=== PATIENT | female | born 1945 | race Caucasian/White ===

== ENCOUNTER 2017-04-15 12:12 | Inpatient (IN) ==
[2017-04-15] MEDS: 0.9 % SODIUM CHLORIDE 250 ML IV SCH ×2 (13:11→15:29)
[2017-04-15 13:21] LABS: Mean Cell Volume 106.1 fL (80.0-100.0); Mean Corpuscular HGB Conc 32.1 g/dL (31.0-36.0); Mean Corpuscular Hemoglobin 34.1 pg (26.0-34.0); Platelet Count 283 K/mcL (140-440); RBC 1.33 M/mcL (4.00-5.20); Red Cell Distribution Width 22.1 % (11.5-14.5)
[2017-04-15 13:34] LABS: ALT/SGPT 10 U/l (0-40); Albumin 3.2 gm/dL (3.2-5.2); Albumin/Globulin Ratio 1.3 (1.0-2.3); Alkaline Phosphatase 72 U/L (39-117); Blood Urea Nitrogen 27 mg/dl (8-23)
[2017-04-15 13:54] LABS: Anisocytosis 2+ (NONE SEEN); Eosinophils % (Manual) 3 % (0-7); Lymphocytes % 17 % (15-49); Macrocytosis 2+ (NONE SEEN); Monocytes % (Manual) 6 % (1-12); Platelet Estimate NORMAL (NORMAL); RBC Morphology ABNORM (NORMAL); Segmented Neutrophils % 74 % (38-78)
[2017-04-15] MEDS ORDERED: HYDROcodone/APAP 5/325MG TABLET PO ONE (14:03)
--- NOTE | 2017-04-15 14:05 | Emergency Department Note ---
Recheck HPI - General Chief Complaint: Recheck/Abnormal Lab/Rx Stated Complaint: low H&H Time Seen by Provider: 04/15/17 12:25 Source: patient, family Mode of arrival: ambulatory Limitations: altered mental status - History of Present Illness HPI Narrative: This chronically ill and complicated patient arrives from the residential following a panic low H&H. She is a poor historian and does not endorse any particular complaints on admit to the unit. After a period of time she began to complain of abdominal pain. Her states that this is chronic with her and she is chronically constipated as well. She does not know if she has had bloody or loose stools lately. She has chronic knee disease chronic dementia chronic heart disease as well as behavioral disturbance. Please see past medical history for entire list MD complaint: abnormal lab Onset/Timin Initial Visit (ago): day(s) Symptoms Since Prior Visit: worsening pain Context: other (Abnormal lab noted at the residential where she resides.) Associated symptoms: malaise - Related Data Home Medications Medication Instructions Recorded Confirmed Multivitamin [One Daily Essential] 1 tab PO DAILY 11/08/16 04/15/17 acetaminophen 325 mg capsule 650 mg PO Q6HP PRN cap 01/27/17 04/15/17 bisacodyl 10 mg rectal suppository 10 mg [place] DAILYP PRN 01/27/17 04/15/17 citalopram 40 mg tablet 20 mg PO HS tab 01/27/17 04/15/17 cyanocobalamin (vit B-12) 2,500 2,500 mcg SUBLINGUAL QDAY 01/27/17 04/15/17 mcg sublingual tablet lorazepam 0.5 mg tablet 0.5 mg PO DAILYP PRN tab 01/27/17 04/15/17 lorazepam 0.5 mg tablet 0.5 mg PO TID tab 01/27/17 04/15/17 magnesium citrate oral solution 15 ml PO BID PRN ml 01/27/17 04/15/17 magnesium hydroxide 400 mg/5 mL 30 ml PO HSP PRN ml 01/27/17 04/15/17 oral suspension sodium phosphates 19 gram-7 118 ml [place] DAILYP PRN 01/27/17 04/15/17 gram/118 mL enema Calcium Carbonate [Tums] 500 - 1,000 mg CHEWED DAILYP PRN 04/15/17 04/15/17 Ferrous Sulfate 325 mg PO BIDCC 04/15/17 04/15/17 Hydrocodone/APAP 7.5/325Mg [[place] 1 tab PO Q6HP PRN 04/15/17 04/15/17 7.5/325Mg] Naproxen Sodium 550 mg PO DAILYP PRN 04/15/17 04/15/17 OLANZapine [Zyprexa] 10 mg PO HS 04/15/17 04/15/17 Ondansetron [Zofran Odt] 4 mg PO Q6HP PRN 04/15/17 04/15/17 Psyllium Husk [Metamucil] 5.4 g PO DAILY 04/15/17 04/15/17 Warfarin [Coumadin] 3 mg PO DAILY 04/15/17 04/15/17 Previous Rx's Medication Instructions Recorded potassium chloride ER 20 mEq 20 meq PO TIDCC #90 tab 07/15/16 tablet,extended release(part/cryst) sodium bicarbonate 650 mg tablet 1,300 mg PO BID 30 Days 09/17/16 polyethylene glycol 3350 17 gram 17 g PO BID PRN #7 each 10/31/16 oral powder packet memantine 14 mg capsule 14 mg PO QDAY #30 each 11/12/16 sprinkle,extended release 24hr Allergies Allergy/AdvReac Type Severity Reaction Status Date / Time No Known Drug Allergies Allergy Verified 12/17/16 13:32 Review of Systems Review of Systems: History is gathered through old records from the residential, her , patient is not an adequate historian Constitutional: Denies: fever, chills Eyes: Denies: eye pain ENT ED: Denies: ear pain, throat pain Cardiovascular: Reports: dyspnea on exertion, other (Asthma). Denies: chest pain, palpitations Gastrointestinal: Reports: abdominal pain. Denies: nausea, vomiting, diarrhea, constipation Genitourinary: Reports: urgency Musculoskeletal: Reports: back pain Integumentary: Denies: rash Neurological: Reports: weakness, confusion, abnormal gait. Denies: headache Psychiatric: Reports: anxiety, depression, other (Demented) Endocrine: Reports: fatigue Hematological/Lymphatic: Reports: easy bleeding, easy bruising, other (Coumadin) Past Medical History - Past Medical History Attestation: Yes: The following information was validated with the patient. Source: obtained from family, nursing notes reviewed Medical history: Reports: arthritis, asthma, DVT, dementia, GERD, renal disease Surgical history ED: Reports: cholecystectomy, colectomy, herniorrhaphy Psychiatric history: Reports: anxiety, depression LMP comments: post menopausal - Social History smoking status: Former smoker Alcohol use: Reports: None Physical Exam - General Limitations: altered mental status, physical limitation General appearance: in no apparent distress, other (very pale) - Head Head exam: atraumatic, normocephalic - Eye Eye exam: Present: normal appearance, other (conjunctival pallor). Absent: conjunctival injection - ENT ENT exam: mucous membranes moist, other (poor dentition) - Neck Neck exam: Present: trachea midline. Absent: lymphadenopathy - Chest Chest inspection: Present: symmetric chest wall rise - Respiratory Respiratory exam: Present: prolonged expiratory phase. Absent: respiratory distress, wheezes - Cardiovascular Cardiovascular exam: Present: regular rate, normal rhythm - Abdominal Exam Abdominal exam: Present: soft, tenderness (right upper and lower quadrant, no rebound), normal bowel sounds, other (Guiaic positive stool. No hao rectal bleed). Absent: distention - Rectal Exam Rectal exam: Present: normal rectal tone, heme (+) stool. Absent: mass, tenderness - Neurological Exam Neurological exam: Present: alert, other (demented) - Psychiatric Psychiatric exam: Present: depressed, flat affect - Skin Skin exam: Present: warm, dry, intact, pallor. Absent: normal color Course Course Narrative: Patient is typed and crossed for potential blood transfusion. Additional laboratory markers are obtained. She will be admitted. Vital Signs Temperature 98.2 F 04/15/17 12:13 Pulse Rate 92 H 04/15/17 12:13 Respiratory Rate 14 04/15/17 12:13 Blood Pressure 114/69 04/15/17 12:13 Pulse Oximetry (%) 99 04/15/17 12:13 Temperature 98.2 F 04/15/17 16:16 Pulse Rate 88 04/15/17 16:16 Respiratory Rate 21 04/15/17 16:16 Blood Pressure 101/60 04/15/17 16:16 Pulse Oximetry (%) 96 04/15/17 16:16 Recheck/Abnormal Lab/Rx - MDM Narrative Medical decision making narrative: GUAIAC STOOL HEME POSITIVE Initial morning CBC drawn at the residential revealed hemoglobin of 3.9 hematocrit of 12.3. This is only slightly improved here with a hemoglobin of 4.5 and hematocrit of 14.3. She is typed and crossed for transfusions. She is profoundly demented complaining of right abdominal pain. She has a known hiatal hernia. She does have heme positive stools as mentioned. She is also in kidney failure and has chronic kidney disease care through Dr Cobian. She will be admitted for further care and investigation. - Lab Data Result diagrams: 04/15/17 12:30 04/15/17 12:30 Lab Results 04/15/17 04/15/17 04/15/17 Range/Units 12:30 12:30 12:30 WBC 7.5 (4.5-11.0) K/mcL RBC 1.33 L (4.00-5.20) M/mcL Hgb 4.5 L* (12.0-15.0) g/dL Hct 14.2 L* (36.0-48.0) % MCV 106.1 H (80.0-100.0) fL MCH 34.1 H (26.0-34.0) pg MCHC 32.1 (31.0-36.0) g/dL RDW 22.1 H (11.5-14.5) % Plt Count 283 (140-440) K/mcL MPV 7.0 L (7.4-10.4) fL Total Counted 100 Seg Neutrophils % 74 (38-78) % Band Neutrophils % Not Reportable Lymphocytes % 17 (15-49) % Monocytes % (Manual) 6 (1-12) % Eosinophils % (Manual) 3 (0-7) % Platelet Estimate Normal (NORMAL) RBC Morphology Abnorm A (NORMAL) Polychromasia 1+ A (NONE SEEN) Anisocytosis 2+ A (NONE SEEN) Macrocytosis 2+ A (NONE SEEN) PT 25.5 H (11.9-14.5) sec INR 2.2 H (0.9-1.1) VBG Lactic Acid (0.5-2.2) mmol/L Sodium 143 (133-145) mmol/L Potassium 4.5 (3.3-5.1) mmol/L Chloride 109 H (96-108) mmol/L Carbon Dioxide 20 L (22-30) mmol/L Anion Gap 14.0 (8-16) BUN 27 H (8-23) mg/dl Creatinine 1.5 H (0.6-1.1) mg/dl GFR Calculation 35 Glucose 88 (70-105) mg/dL Calcium 8.0 L (8.6-10.4) mg/dl Total Bilirubin < 0.2 (0.0-1.0) mg/dL AST 12 (0-37) U/l ALT 10 (0-40) U/l Alkaline Phosphatase 72 (39-117) U/L Total Protein 5.6 L (5.9-8.4) gm/dL Albumin 3.2 (3.2-5.2) gm/dL Globulin 2.4 (2.2-3.7) gm/dL Albumin/Globulin Ratio 1.3 (1.0-2.3) 05// Range/Units 12:30 WBC (4.5-11.0) K/mcL RBC (4.00-5.20) M/mcL Hgb (12.0-15.0) g/dL Hct (36.0-48.0) % MCV (80.0-100.0) fL MCH (26.0-34.0) pg MCHC (31.0-36.0) g/dL RDW (11.5-14.5) % Plt Count (140-440) K/mcL MPV (7.4-10.4) fL Total Counted Seg Neutrophils % (38-78) % Band Neutrophils % Lymphocytes % (15-49) % Monocytes % (Manual) (1-12) % Eosinophils % (Manual) (0-7) % Platelet Estimate (NORMAL) RBC Morphology (NORMAL) Polychromasia (NONE SEEN) Anisocytosis (NONE SEEN) Macrocytosis (NONE SEEN) PT (11.9-14.5) sec INR (0.9-1.1) VBG Lactic Acid 0.7 (0.5-2.2) mmol/L Sodium (133-145) mmol/L Potassium (3.3-5.1) mmol/L Chloride (96-108) mmol/L Carbon Dioxide (22-30) mmol/L Anion Gap (8-16) BUN (8-23) mg/dl Creatinine (0.6-1.1) mg/dl GFR Calculation Glucose (70-105) mg/dL Calcium (8.6-10.4) mg/dl Total Bilirubin (0.0-1.0) mg/dL AST (0-37) U/l ALT (0-40) U/l Alkaline Phosphatase (39-117) U/L Total Protein (5.9-8.4) gm/dL Albumin (3.2-5.2) gm/dL Globulin (2.2-3.7) gm/dL Albumin/Globulin Ratio (1.0-2.3) Critical Care Time Critical Care Time: Yes Disposition Clinical Impression: GI bleed, Anemia Disposition: Xfer [facility] Condition: Serious
--- NOTE | 2017-04-15 14:05 | XRay Report ---
CLINICAL INFORMATION: Anemia COMPARISON: 04/15/2016 FINDINGS: Moderate size hiatal hernia is stable. The heart is mildly enlarged but stable. Mediastinum is otherwise, unremarkable. Upper lobe pulmonary vessels are slightly distended, but no definite edema. No infiltrates or effusions. Moderate degenerative disease seen throughout the thoracic spine. IMPRESSION: Borderline CHF or volume overload Moderate-sized hiatal hernia - stable Interpreted and Authenticated by: Miller Jones 04/15/17
[2017-04-15] MEDS ORDERED: LORazepam 0.5 MG TABLET PO PRN (15:24)
--- NOTE | 2017-04-15 15:44 | Internal Med History&Physical ---
Medical - H&P: HPI Patient information: Note initiated : 04/15/17 at 3:34 pm Service Date, if different from initiated Date: [] Patient: Faiza Roy 71 y/o F admitted on for Low H&H. Chief Complaint: [] History of present illness: Ms. Roy is a 71 year old female with h/o dementia, ascending hemicolectomy , terminal ilectomy, hiatal hernia, CKD, [place] resident, chr anemia who presents ot the ER after a critical lab value was noted hb was 3.9, the patient reports dark stools and intermittent loose stools. But denies any hao blood in stools , she is on chr anticoagulation from DVT in the past (s/p IVC filter placement for DVT temp placed but was not removed in time). The patient has dementia and only answers direct questions appropriately at times. She notes some pain in the right side of the abdomen where she has a ventral hernia. this pain seems chr in nature given that she has ER visit for same in the past, with neg CT. The patient otherwise denies any blood in stools, no black tarry stools, no nausea or hemotpysis. There is no h/o GI bleed in the past, has h/o tubulovillous polyp and bowel perforation in the past. Medications are significant for nsaids and coumadin most of the history was provided by her . All systems: reviewed and no additional remarkable complaints except as stated ( as per HPI) Medical - H&P: PM Medical history: Medical History (Last Updated 04/15/17 @ 15:44 by Patrica Agee MD) Anxiety (Acute) Dysphagia (Acute) Fracture of fifth metacarpal bone of left hand (Acute) Sprain and strain of wrist (Acute) Gastroenteritis (Acute) Hematuria (Acute) Abscess of skin or subcutaneous tissue (Acute) Globus sensation (Chronic) Wound drainage (Chronic) Uterine mass (Chronic) Poor venous access (Chronic) Insomnia (Chronic) Generalized anxiety disorder (Chronic) Endocarditis (Chronic) Encounter for mammogram to establish baseline mammogram (Chronic) Dementia (Chronic) Anorexia symptom (Chronic) Erythema (Chronic) Abnormal mammogram (Chronic) Renal failure (Acute) Constipation (Acute) Dehydration (Acute) ARF (acute renal failure) (Acute) Abdominal pain (Acute) Dehydration (Acute) Metabolic acidosis (Acute) Depression (Chronic) Asthma (Chronic) Anxiety (Chronic) Acid reflux (Chronic) 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) Surgical history: Past Surgical History (Last Updated 04/09/17 @ 14:32 by Gist [place]) H/O hernia repair (Resolved) History of cholecystectomy (Resolved) S/P PICC central line placement (Resolved) Family history: reviewed and not pertinent Medical - H&P: Meds Home Medications Medication Instructions Recorded Confirmed Type potassium chloride ER 20 mEq 20 meq PO TIDCC #90 tab 07/15/16 04/15/17 Rx tablet,extended release(part/cryst) sodium bicarbonate 650 mg tablet 1,300 mg PO BID 30 Days 09/17/16 04/15/17 Rx polyethylene glycol 3350 17 gram 17 g PO BID PRN #7 each 10/31/16 04/15/17 Rx oral powder packet Multivitamin [One Daily Essential] 1 tab PO DAILY 11/08/16 04/15/17 History memantine 14 mg capsule 14 mg PO QDAY #30 each 11/12/16 04/15/17 Rx sprinkle,extended release 24hr acetaminophen 325 mg capsule 650 mg PO Q6HP PRN cap 01/27/17 04/15/17 History bisacodyl 10 mg rectal suppository 10 mg [place] DAILYP PRN 01/27/17 04/15/17 History citalopram 40 mg tablet 20 mg PO HS tab 01/27/17 04/15/17 History cyanocobalamin (vit B-12) 2,500 2,500 mcg SUBLINGUAL QDAY 01/27/17 04/15/17 History mcg sublingual tablet lorazepam 0.5 mg tablet 0.5 mg PO DAILYP PRN tab 01/27/17 04/15/17 History lorazepam 0.5 mg tablet 0.5 mg PO TID tab 01/27/17 04/15/17 History magnesium citrate oral solution 15 ml PO BID PRN ml 01/27/17 04/15/17 History magnesium hydroxide 400 mg/5 mL 30 ml PO HSP PRN ml 01/27/17 04/15/17 History oral suspension sodium phosphates 19 gram-7 118 ml [place] DAILYP PRN 01/27/17 04/15/17 History gram/118 mL enema Calcium Carbonate [Tums] 500 - 1,000 mg CHEWED DAILYP PRN 04/15/17 04/15/17 History Ferrous Sulfate 325 mg PO BIDCC 04/15/17 04/15/17 History Hydrocodone/APAP 7.5/325Mg [[place] 1 tab PO Q6HP PRN 04/15/17 04/15/17 History 7.5/325Mg] Naproxen Sodium 550 mg PO DAILYP PRN 04/15/17 04/15/17 History OLANZapine [Zyprexa] 10 mg PO HS 04/15/17 04/15/17 History Ondansetron [Zofran Odt] 4 mg PO Q6HP PRN 04/15/17 04/15/17 History Psyllium Husk [Metamucil] 5.4 g PO DAILY 04/15/17 04/15/17 History Warfarin [Coumadin] 3 mg PO DAILY 04/15/17 04/15/17 History Allergies Allergy/AdvReac Type Severity Reaction Status Date / Time No Known Drug Allergies Allergy Verified 12/17/16 13:32 Medical - H&P: Exam - Constitutional Vitals: Temp Pulse Resp BP Pulse Ox 98.2 F 100 H 20 145/126 96 04/15/17 12:13 04/15/17 15:01 04/15/17 15:01 04/15/17 15:01 04/15/17 15:01 Exam: GENERAL: The patient is a well-developed, well-nourished in no apparent distress. Is alert and oriented x3. VITAL SIGNS: Reviewed and as noted elsewhere. HEENT: Head is normocephalic and atraumatic. Extraocular muscles are intact. Pupils are equal, round, and reactive to light. Nares appeared normal. Mouth appears any without lesions. Mucous membranes are moist. NECK: Normal to inspection, Supple, No lymphadenopathy or thyromegaly. LUNGS: Air entry equal on both sides, no wheezing, crackles or rhonchi noted. No accessory muscles of respiration HEART: Regular rate and rhythm normal, S1 and S2 heard, no Gallop, S3 or Rub Noted, No Gross murmur heard. ABDOMEN: Soft, nontender, and nondistended. Positive bowel sounds. No hepatosplenomegaly was noted. large scar midline, large ventral hernia on the right side of the abdomen noted. EXTREMITIES: No cyanosis, clubbing, rash, lesions or edema. NEUROLOGIC: Cranial nerves II through XII are grossly intact. Motor and Sensory System Grossly Intact PSYCHIATRIC: tangential thought process and anxious behavour noted. SKIN: No ulceration or wounds noted, No jaundice, No rash noted. Medical - H&P: Reslt - Labs CBC & Chem 7: 04/15/17 12:30 04/15/17 12:30 Labs: Short CBC 04/15/17 Range/Units 12:30 WBC 7.5 (4.5-11.0) K/mcL Hgb 4.5 L* (12.0-15.0) g/dL Hct 14.2 L* (36.0-48.0) % Plt Count 283 (140-440) K/mcL BMP 04/15/17 12:30 Sodium 143 Potassium 4.5 Chloride 109 H Carbon Dioxide 20 L BUN 27 H Creatinine 1.5 H Glucose 88 Calcium 8.0 L Liver Function 04/15/17 Range/Units 12:30 Total Bilirubin < 0.2 (0.0-1.0) mg/dL AST 12 (0-37) U/l ALT 10 (0-40) U/l Alkaline Phosphatase 72 (39-117) U/L Albumin 3.2 (3.2-5.2) gm/dL Medical - H&P: A/P - Narrative A/P Narrative: a/p Acute blood loss anemia: FOB positive, last hb last month was around 9, GI consulted, IV ppi, IV blood transfusion to be given. IV lasix after 1st blood transfusion, given possible fluid overload status on the X ray. clinically not volume overloaded. Patient will receive total of 3 units, with 2 on hold. hopefully EGD/ colonoscopy will be done. Anemia workup ordered Dementia: chr in nature, answers some questions correctly. aoox3 but comprehension is limited for certain aspects, continue home meds chr Pain resume home meds CKD stable creat monitor for now. 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 Hold off coumadin, will discuss with GI regarding safe resumption of coumadin. Dementia: stable, resume home meds. Anxiety, Ativan prn Fall risk Full code DVT scd DIet NPO for now, Social History - Social History caregiver/support person: Yes household members: spouse, other housing: house marital status: education level: high school service: No residential: No (pt. was d/c on 03/15 from [facility]) occupational status: unemployed pets and animals: No leisure activities: other sexually active: No - Dietary Habits well-balanced diet: rarely or never high-fat food intake: 3 or more times/day daily servings fruits/ve-1 daily servings of milk/calcium: 2-4 eating out: 1-3 times/week during the past year weight has: other - Exercise physical activity: none - Tobacco smoking status: Former smoker - Alcohol alcohol intake frequency: does not drink - Substance use substance use type: does not use - Brittany/Orthodoxy brittany/buddhism: Sikh special brittany needs: No - Home Safety water heater temp set < 120 deg: No (renting, says they can't turn it down, are careful with hot water) working smoke detector in home: Yes fire extinguisher in home: No carbon monox detector in home: Yes firearms in home: Yes
[2017-04-15] MEDS ORDERED: 0.9 % SODIUM CHLORIDE 250 ML IV SCH ×2 (16:21)
[2017-04-15] MEDS ORDERED: NALOXONE HCL 0.4 MG/ML VIAL IV PRN (16:21)
[2017-04-15] MEDS ORDERED: ONDANSETRON 4 MG/2 ML VIAL IV PRN (16:21)
[2017-04-15] MEDS ORDERED: ACETAMINOPHEN 325 MG TABLET PO PRN (16:21)
[2017-04-15] MEDS: PANTOPRAZOLE 40 MG VIAL IV SCH ×2 (16:36→17:04)
[2017-04-15] MEDS ORDERED: FUROSEMIDE 20 MG/2 ML VIAL IV ONE (16:36)
[2017-04-15] MEDS: POTASSIUM CHLORIDE 20 MEQ TABLET PO SCH (16:46)
[2017-04-15] MEDS ORDERED: PHYTONADIONE 10 MG in 0.9 % SODIUM CHLORIDE 50 ML IV ONE (17:22)
[2017-04-15] MEDS ORDERED: PHYTONADIONE 10 MG/ML AMPUL SQ ONE (17:27)
[2017-04-15] MEDS ORDERED: KETAMINE 10 MG/ML ML IV PRN (17:33)
[2017-04-15] MEDS ORDERED: PROPOFOL 20 ML IV ONE (17:38)
[2017-04-15] MEDS ORDERED: MIDAZOLAM 2 MG/2 ML VIAL ONE (17:38)
[2017-04-15] MEDS ORDERED: PROPOFOL 200 MG/20 ML VIAL IV SCH (17:45)
[2017-04-15] MEDS ORDERED: PEG 3350/NA SULF,BICARB,CL/KCL 4,000 ML ORAL.SOL PO ONE (17:45)
[2017-04-15] MEDS ORDERED: MIDAZOLAM 2 MG/2 ML VIAL IV SCH (17:45)
[2017-04-15] MEDS ORDERED: MAGNESIUM CITRATE 300 ML ORAL.SOL PO ONE (18:48)
[2017-04-15 21:10] LABS: Appearance,Urine CLEAR; Bacteria,Urine 0 /hpf (0); Bilirubin,Urine NEG (NEG); Color,Urine YELLOW; Glucose,Urine (UA) NEGATIVE (NEG); Leukocyte Esterase,Urine 75 /uL (NEG); Mucus,Urine FEW /hpf (0); Nitrate,Urine NEG (NEG); Protein,Urine NEG (NEG); Specific Gravity,Urine 1.014 (1.000-1.035); Urine Blood NEG mg/dL (<0.03); Urine RBC 1 /hpf (0-1); Urine Squamous Epithelial Cell 3 /hpf (0-4); Urine Transitional Epi Cells < 1 /hpf (0-2); Urine WBC 25 /hpf (0-4); Urobilinogen,Urine NEG (NEG)
[2017-04-15] MEDS: SODIUM BICARBONATE 650 MG TABLET PO SCH (21:54)
[2017-04-15] MEDS: LORazepam 0.5 MG TABLET PO SCH (21:55)
[2017-04-15] MEDS: OLANZapine 5 MG TABLET PO SCH (21:55)
[2017-04-15] MEDS: CITALOPRAM 20 MG TABLET PO SCH (21:55)
[2017-04-15] MEDS: HYDROcodone/APAP 5/325MG TABLET PO PRN (22:58)
[2017-04-16 00:31] LABS: Iron 66 mcg/dl (37-145); Transferrin % Saturation 29 % (15-50); Unsaturated Iron Binding 160 mcg/dL (112-346)
[2017-04-16 00:50] LABS: Ferritin 124.5 ng/ml (30-400); Vitamin B12 1672 pg/ml (243-894)
[2017-04-16] MEDS: HYDROcodone/APAP 5/325MG TABLET PO PRN ×2 (04:59→20:22)
[2017-04-16 07:28] LABS: Basophils # (Auto) 0 K/mcL (0.0-0.3); Basophils % (Auto) 0.4 % (0.0-2.0); Eosinophils # (Auto) 0.1 K/mcL (0.0-0.7); Eosinophils % (Auto) 2.4 % (0.0-7.0); Granulocytes % (Auto) 71.1 % (38.0-78.0); Lymphocytes % (Auto) 17.3 % (15.5-49.0); Mean Cell Volume 96.2 fL (80.0-100.0); Mean Corpuscular HGB Conc 33.5 g/dL (31.0-36.0); Mean Corpuscular Hemoglobin 32.2 pg (26.0-34.0); Monocytes # (Auto) 0.5 K/mcL (0.1-0.9); Monocytes % (Auto) 8.8 % (1.0-12.0); Platelet Count 270 K/mcL (140-440); RBC 2.32 M/mcL (4.00-5.20); Red Cell Distribution Width 23.1 % (11.5-14.5)
[2017-04-16 08:04] LABS: ALT/SGPT 9 U/l (0-40); Albumin/Globulin Ratio 1.3 (1.0-2.3); Alkaline Phosphatase 68 U/L (39-117); Bilirubin,Direct < 0.2 mg/dL (0.0-0.3); Blood Urea Nitrogen 22 mg/dl (8-23); Gamma Glutamyl Transpeptidase 7 U/L (5-36); Magnesium 1.9 mg/dL (1.6-2.5); Uric Acid 6.8 mg/dL (2.5-8.0)
[2017-04-16] MEDS ORDERED: MAGNESIUM CITRATE 300 ML ORAL.SOL PO SCH (09:00)
[2017-04-16] MEDS: SODIUM BICARBONATE 650 MG TABLET PO SCH ×2 (09:29→20:22)
[2017-04-16] MEDS: LORazepam 0.5 MG TABLET PO SCH ×3 (09:29→20:23)
[2017-04-16] MEDS: POTASSIUM CHLORIDE 20 MEQ TABLET PO SCH ×3 (09:29→20:22)
[2017-04-16] MEDS: PANTOPRAZOLE 40 MG VIAL IV SCH (09:29)
[2017-04-16] MEDS: MULTIVIT,THER IRON,CA,FA & MIN 1 TABLET PO SCH (09:29)
[2017-04-16] MEDS: MEMANTINE HCL 14 MG PO SCH (09:29)
--- NOTE | 2017-04-16 10:37 | Internal Med Progress Note ---
Medical - PN: Subj Patient information: Note initiated : 04/16/17 at 10:35 am Service Date, if different from initiated Date: [] Patient: Faiza Roy 71 y/o F admitted on 04/15/17 for Low H&H/GI Bleed, Anemia. Chief Complaint: [] Interval history: Ms. Roy is a 71 year old female with h/o dementia, ascending hemicolectomy , terminal ileectomy, hiatal hernia, CKD, [place] resident, chr anemia who presents ot the ER after a critical lab value was noted hb was 3.9, the patient reports dark stools and intermittent loose stools. But denies any hao blood in stools , she is on chr anticoagulation from DVT in the past (s/p IVC filter placement for DVT temp placed but was not removed in time). The patient has dementia and only answers direct questions appropriately at times. She notes some pain in the right side of the abdomen where she has a ventral hernia. this pain seems chr in nature given that she has ER visit for same in the past, with neg CT. The patient otherwise denies any blood in stools, no black tarry stools, no nausea or hemoptysis. There is no h/o GI bleed in the past, has h/o tubulovillous polyp and bowel perforation in the past. Medications are significant for nsaids and Coumadin. most of the history was provided by her . 04/16 Pt seen examined, no acute overnight events, s/p 3 units blood transfusion. Hb improved to s/p EGD done yesterday, no upper GI bleed noted, no billy or blood in stools reported overnight. Patient due to have a colonoscopy tomorrow. She continues to need close attention, will remain on tele bed. Pertinent ROS: Denies headache, dizziness Denies chest pain, palpitations Denies cough or shortness of breath Denies abdominal pain, nausea or vomiting. usually complains of abdominal pain which is chronic right leg pain present chr, - Constitutional Vitals: Vital Signs Temp Pulse Resp BP Pulse Ox 98.8 F 82 18 125/65 93 04/16/17 06:58 04/16/17 04:39 04/16/17 06:58 04/16/17 06:58 04/16/17 06:58 Period Temp Pulse Resp BP Sys/Benitez Pulse Ox Last 24 Hr 96.1 F-98.8 F 74-88 16-21 101-160/53-85 93-99 Intake and Output 04/15/17 04/16/17 04/16/17 21:59 05:59 13:59 Intake Total 539 / 539 377 / 377 Output Total 2151 / 2151 152 / 152 Balance -1613 / -1613 225 / 225 Weight 147 lb Intake & Output: Intake & Output 04/15/17 04/16/17 04/16/17 21:59 05:59 13:59 Intake Total 539 / 539 377 / 377 Output Total 2151 152 / 152 Balance -1613 / -1613 225 / 225 Weight 147 lb Intake: Oral 100 / 100 Blood Product 539 / 539 277 / 277 Output: Void Amount 401 / 401 150 / 150 # of times incontinent of 1 / 1 2 / 2 urine Urine/Stool Mix 550 / 550 Stool 1200 / 1200 Other: # Voids 1 1 1 # Bowel Movements 1 1 1 # of times incontinent of 1 Bowels Exam: Constitutional; Afebrile, cooperative, alert, not in distress. Eyes- No icterus, , No periorbital swelling Ears- Ext ear normal, hearing normal to conversation. Neck- Midline trachea, supple Respiratory system: Air Entry equal on both sides, No crackles or wheezing, no rhonchi. CVS- Rate rhythm regular, S1,S2 heard, no gallop, no rub. Abdomen- Soft nontender abdomen,midline scare, obese abdomen, right sided ventral hernia, bs present. 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 Medical - PN: Obj Da - Labs CBC & Chem 7: 04/16/17 05:43 04/16/17 05:42 Labs: Abnormal Lab Results 04/16/17 04/16/17 04/16/17 05:43 05:43 05:42 RBC 2.32 L Hgb 7.5 L Hct 22.4 L RDW 23.1 H Lymph # 1.0 L PT 19.7 H INR 1.6 H Creatinine 1.5 H Calcium 7.9 L Total Protein 5.3 L Albumin 3.0 L Ur Leukocyte Esterase Urine WBC 04/15/17 20:45 RBC Hgb Hct RDW Lymph # PT INR Creatinine Calcium Total Protein Albumin Ur Leukocyte Esterase 75 A Urine WBC 25 H Meds: Medications Acetaminophen (Tylenol) 650 mg PO Q6HP PRN PRN Reason: PAIN/FEVER > 101 Acetaminophen/Hydrocodone Bitart ([place] 5/325mg) 1 tab PO Q4HP PRN PRN Reason: Pain Last Admin: 04/16/17 04:59 Dose: 1 tab Citalopram Hydrobromide (Celexa) 20 mg PO HS [facility] Last Admin: 04/15/17 21:55 Dose: 20 mg Iron Carb/Multivit/Ophthalmic Technologist/Folic Acid (Multivitamin W/Minerals) 1 tab PO DAILY [facility] Last Admin: 04/16/17 09:29 Dose: Not Given Lorazepam (Ativan) 0.5 mg PO TID [facility] Last Admin: 04/16/17 09:29 Dose: 0.5 mg Lorazepam (Ativan) 0.5 mg PO DAILYP PRN PRN Reason: Anxiety Last Admin: 04/16/17 00:13 Dose: 0.5 mg Naloxone HCl (Narcan) 0.1 mg IV Q2MIN PRN PRN Reason: Opiate Reversal Olanzapine (Zyprexa) 10 mg PO HS [facility] Last Admin: 04/15/17 21:55 Dose: 10 mg Ondansetron HCl (Zofran) 4 mg IV Q4HP PRN PRN Reason: Nausea And Vomiting Pantoprazole Sodium (Protonix) 40 mg IV BIDAC [facility] Last Admin: 04/16/17 09:29 Dose: 40 mg Memantine Hcl [ Namenda Xr] 14 Mg Capsule 1 dose PO DAILY [facility] Last Admin: 04/16/17 09:29 Dose: Not Given Potassium Chloride (Kdur) 20 meq PO TIDCC [facility] Last Admin: 04/16/17 09:29 Dose: Not Given Sodium Bicarbonate (Sodium Bicarbonate) 1,300 mg PO BID [facility] Last Admin: 04/16/17 09:29 Dose: Not Given Medical - PN: A/P - Time Spent With Patient Total time spent is greater than 50% in coordination of care (as documented) at patient's floor/unit and/or counseling patient: - Narrative A/P Narrative: Acute blood loss anemia: FOB positive in the ER, ls/p 3 units prbc transfusion, doing well, hb at 7.5, check again this afternoon, EGD is negative, Colnoscopy planned later today. GI help appreciated. Dementia: chr in nature, answers some questions correctly. aoox3 but comprehension is limited for certain aspects, continue home meds chr Pain resume home meds CKD stable creat monitor for now. Chr Anticoagulation: INR 1.5, s/p vit K, h/o dvt in past and has a IVC filter. Dementia: stable, on home meds Anxiety, Ativan prn Fall risk Full code DVT scd DIet clear liquid . Medical - PN: Qual - VTE Deep Vein Thrombosis/Pulmonary Embolism Present on Admission: No
--- NOTE | 2017-04-16 11:14 | Operative Note ---
DATE OF OPERATION: 04/15/2017 PROCEDURE: Esophagogastroduodenoscopy. COLOR FINISHER AND MORTARMAN: Miller Hayes MD ANESTHETIC USED: Versed 1 mg IV, propofol 80 mg IV. PREOPERATIVE DIAGNOSIS: A 71-year-old patient who presented to the emergency room today and was found to have Hemoccult positive stool and severe anemia with hemoglobin a little over 4. Her MCV is elevated; however. She is on Coumadin with INR 2.2 today. POSTOPERATIVE DIAGNOSIS: Large hiatal hernia with about half of the stomach above the diaphragm, but no upper GI bleeding identified. CONSENT: Prior to the procedure the patient provided her own informed consent. The patient was evaluated and considered medically fit for endoscopy. DESCRIPTION OF PROCEDURE: With the patient in the left lateral decubitus position, a gastroscope was advanced via the mouth to the esophagus under direct vision. The esophagus is normal, without evidence of ulcer or varices. There is a very large hiatal hernia. About half of the stomach is above the level of the diaphragm. I did not identify any Avery erosions. The antrum was normal. The pylorus was patent and the duodenum was normal to the third portion. COMPLICATIONS: None immediate. RECOMMENDATIONS: We will prep the patient's colon for a colonoscopy to be done tomorrow afternoon, transfuse as you are doing. JCM:[email or web address] Job ID: [id number] Doc ID: [id number] Miller Chu DO
[2017-04-16] MEDS ORDERED: MIDAZOLAM 2 MG/2 ML VIAL IV SCH (12:45)
[2017-04-16] MEDS ORDERED: PROPOFOL 200 MG/20 ML VIAL IV SCH (12:45)
[2017-04-16] MEDS ORDERED: PROPOFOL 20 ML IV ONE (12:54)
[2017-04-16] MEDS ORDERED: MIDAZOLAM 2 MG/2 ML VIAL ONE (12:54)
[2017-04-16] MEDS: CITALOPRAM 20 MG TABLET PO SCH (20:22)
[2017-04-16] MEDS: OLANZapine 5 MG TABLET PO SCH (20:22)
[2017-04-17] MEDS: HYDROcodone/APAP 5/325MG TABLET PO PRN ×3 (03:16→11:38)
[2017-04-17 06:01] LABS: Basophils # (Auto) 0 K/mcL (0.0-0.3); Basophils % (Auto) 0.4 % (0.0-2.0); Eosinophils # (Auto) 0.1 K/mcL (0.0-0.7); Eosinophils % (Auto) 2.5 % (0.0-7.0); Lymphocytes # (Auto) 0.8 K/mcL (1.5-4.8); Lymphocytes % (Auto) 17.2 % (15.5-49.0); Mean Cell Volume 96.9 fL (80.0-100.0); Monocytes # (Auto) 0.4 K/mcL (0.1-0.9); Monocytes % (Auto) 8.9 % (1.0-12.0); Platelet Count 268 K/mcL (140-440); RBC 2.35 M/mcL (4.00-5.20); Red Cell Distribution Width 21.2 % (11.5-14.5)
[2017-04-17 06:35] LABS: ALT/SGPT 9 U/l (0-40); Albumin 2.8 gm/dL (3.2-5.2); Albumin/Globulin Ratio 1.3 (1.0-2.3); Alkaline Phosphatase 64 U/L (39-117); Bilirubin,Direct < 0.2 mg/dL (0.0-0.3); Blood Urea Nitrogen 17 mg/dl (8-23); Gamma Glutamyl Transpeptidase 8 U/L (5-36); Iron 27 mcg/dl (37-145); Magnesium 1.9 mg/dL (1.6-2.5); Transferrin % Saturation 14 % (15-50); Unsaturated Iron Binding 164 mcg/dL (112-346); Uric Acid 7.6 mg/dL (2.5-8.0)
[2017-04-17] MEDS ORDERED: PANTOPRAZOLE 40 MG VIAL IV SCH (07:30)
[2017-04-17] MEDS ORDERED: 0.9 % SODIUM CHLORIDE 500 ML IV ONE ×2 (07:55→07:59)
[2017-04-17] MEDS ORDERED: GABAPENTIN 100 MG CAPSULE PO SCH (08:13)
[2017-04-17] MEDS ORDERED: IOPAMIDOL 100 ML BOTTLE IV ONE (09:20)
--- NOTE | 2017-04-17 09:31 | Operative Note ---
DATE OF OPERATION: 04/16/2017 PROCEDURE: Colonoscopy. DISPENSING OPTICIAN AND RN TRIAGE: Miller Hayes MD ANESTHETIC USED: Propofol 160 mg IV and Versed 1 mg IV. PREOPERATIVE DIAGNOSIS: Anemia with question of GI bleeding as the basis. POSTOPERATIVE DIAGNOSIS: Status post right hemicolectomy with anastomosis patent. There is mild to moderate left-sided diverticulosis, but otherwise normal postoperative colon. No blood or clot seen anywhere in the GI tract. CONSENT: Prior to the procedure, the patient and family provided informed consent. The patient was evaluated and considered medically fit for endoscopy. DESCRIPTION OF PROCEDURE: With the patient in the left lateral decubitus position, a rectal exam was performed which was unremarkable. Thereafter, a colonoscope was advanced into the rectum under direct vision. The quality of the prep was adequate. There is a lot of thick slimy stool adherent to the bowel wall. There is no solid stool in the colon. With copious irrigation, I was able to clean off most areas of the mucosa and only identified some mild to moderate left-sided diverticulosis. No other bleeding or potential bleeding sites were identified. The anastomosis is patent. No polyps. No arteriovenous malformations. No active bleeding or recent bleeding from diverticulosis noted. Retroflexed view of the rectum was normal. COMPLICATIONS: None immediate. RECOMMENDATIONS AND FOLLOWUP: Would check patient's iron status, even though the MCV is elevated. Supplement iron if the iron saturation is low. I do not recommend further GI workup as the patient did have an EGD yesterday night. THEODORE:[email or web address] Job ID: [id number] Doc ID: [id number] Miller Chu DO
[2017-04-17] MEDS: LORazepam 0.5 MG TABLET PO SCH (09:46)
[2017-04-17] MEDS: POTASSIUM CHLORIDE 20 MEQ TABLET PO SCH (09:47)
[2017-04-17] MEDS: MULTIVIT,THER IRON,CA,FA & MIN 1 TABLET PO SCH (09:47)
[2017-04-17] MEDS: SODIUM BICARBONATE 650 MG TABLET PO SCH (09:47)
[2017-04-17] MEDS: MEMANTINE HCL 14 MG PO SCH (09:48)
--- NOTE | 2017-04-17 10:29 | Cat Scan Report ---
CLINICAL INFORMATION: Abdominal pain COMPARISON: 04/11/2016 and 11/01/[address] TECHNIQUE: Following enteric contrast, 80 cc of Isovue-300 were injected intravenously, and 60 seconds later, 2.5 mm helical slices were obtained from the mid heart through the subtrochanteric regions. Following reconstruction, 2.5 mm sagittal, coronal and axial reformatted images were processed and reviewed at bone, lung and soft tissue windows. Five minutes later, 5 mm helical slices were obtained from the mid heart through the kidneys and viewed at soft tissue windows. FINDINGS: Lung bases show small bilateral pleural effusions - new. There is atelectasis of the medial posterior segments of the left lower lobe - chronic. Subsegmental atelectasis in the posterior right lower lobe appreciated. Large hiatal hernia consisting of gastric fundus and proximal body seen - as before. The heart is borderline enlarged, but unchanged Images through the abdomen show the gallbladder is surgically absent. Intrahepatic, common hepatic and common bile ducts are mildly dilated: CBD is 9 mm. Findings are compatible with mild post cholecystectomy. Abler stenosis - this is stable Mild bilateral renal atrophy is again noted. No focal renal lesions. Both adrenal glands, spleen and pancreas are normal. Aorta is tortuous, but normal in caliber. The celiac, SMA, VIDA, renal and iliac arteries are widely patent. IVC filter in the suprarenal region seen - Images through the pelvis show a 8 cm subserosal fibroid in the left uterine cornea with central calcification which is unchanged.. Urinary bladder is unremarkable. Right colectomy changes noted with ileal anastomosis to the mid transverse colon again noted. Anastomosis appears grossly normal. Mild ileus pattern noted. There is surgical mesh in the right midabdomen which appears redundant and there is mild protrusion of the mesenteric fat, proximal transverse transverse colon and small bowel previously seen. No evidence recurrent hernia. IMPRESSION: 1. Interval herniorrhaphy of ventral hernia in the right upper quadrant. No evidence recurrent hernia but the mesh appears slightly redundant 2. Right colectomy changes with ileal anastomosis to the proximal transverse colon. No evidence of bowel obstruction. Mild ileus. 3. Mild bilateral renal atrophy 4. Large hiatal hernia - stable 5. Small bilateral pleural effusions - new. Please consider the possibility of prior CHF 6. 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 Mild post cholecystectomy papillary stenosis - stable and likely insignificant Interpreted and Authenticated by: Miller Jones 04/17/17
--- NOTE | 2017-04-17 11:10 | Discharge Summary ---
Medical - DS: Prov Patient information: Note initiated : 04/17/17 at 11:08 am Service Date, if different from initiated Date: [] Patient: Faiza Roy 71 y/o F admitted on 04/15/17 for Low H&H/GI Bleed, Anemia. Chief Complaint: [] Date of admission: 04/15/17 16:05 Discharge date: 04/17/17 Primary care physician: Miller Chu Admitting clinician: Patrica Agee Consults: GI consult Discharging clinician: Patrica Agee Medical - DS: Meds - Discharge Medications Prescriptions: RX: Ferrous Gluconate [Fergon] 324 mg PO DAILY #60 tablet RX: Gabapentin [Neurontin] 100 mg PO Q8 #90 capsule RX: Hydrocodone/APAP 7.5/325Mg [Hardy 7.5/325Mg] 1 tab PO Q6HP PRN #40 PRN Reason: Pain RX: LORazepam [Ativan] 0.5 mg PO TID #30 tab Active and Home Medications: Home Medications potassium chloride ER 20 mEq tablet,extended release(part/cryst) 20 meq PO TIDCC #90 tab 07/15/16 [Rx Confirmed 04/15/17 Last Taken 04/15/17 08:00 20 MEQ] sodium bicarbonate 650 mg tablet 1,300 mg PO BID 30 Days 09/17/16 [Rx Confirmed 04/15/17 Last Taken 04/15/17 09:00 650 MG.] polyethylene glycol 3350 17 gram oral powder packet 17 g PO BID PRN #7 each 08/08 [Rx Confirmed 04/15/17 Last Taken 10/31/16] Multivitamin [One Daily Essential] 1 tab PO DAILY 11/08/16 [History Confirmed Last Taken 04/15/17 09:00 1 TAB] memantine 14 mg capsule sprinkle,extended release 24hr 14 mg PO QDAY #30 each [Rx Confirmed 04/15/17 Last Taken 04/15/17 09:00 14 MG.] acetaminophen 325 mg capsule 650 mg PO Q6HP PRN cap 01/27/17 [History Confirmed 04/15/17 Last Taken 04/14/17 21:00] bisacodyl 10 mg rectal suppository 10 mg [place] DAILYP PRN 01/27/17 [History Confirmed 04/15/17 Last Taken Unknown] citalopram 40 mg tablet 20 mg PO HS tab 01/27/17 [History Confirmed 04/15/17 Last Taken 04/14/17 21:00] cyanocobalamin (vit B-12) 2,500 mcg sublingual tablet 2,500 mcg SUBLINGUAL QDAY 01/27/17 [History Confirmed 04/15/17 Last Taken 04/15/17 09:00] lorazepam 0.5 mg tablet 0.5 mg PO DAILYP PRN tab 01/27/17 [History Confirmed Last Taken 04/14/17 0.5 MG.] magnesium citrate oral solution 15 ml PO BID PRN ml 01/27/17 [History Confirmed 04/15/17 Last Taken Unknown] magnesium hydroxide 400 mg/5 mL oral suspension 30 ml PO HSP PRN ml 01/27/17 [ History Confirmed 04/15/17 Last Taken Unknown] sodium phosphates 19 gram-7 gram/118 mL enema 118 ml [place] DAILYP PRN 01/27/17 [ History Confirmed 04/15/17 Last Taken Unknown] Calcium Carbonate [Tums] 500 - 1,000 mg CHEWED DAILYP PRN 04/15/17 [History Confirmed 04/15/17 Last Taken 04/14/17 12:00 1000 MG.] Ferrous Sulfate 325 mg PO BIDCC 04/15/17 [History Confirmed 04/15/17 Last Taken 04/15/17 08:00 325 MG.] Hydrocodone/APAP 7.5/325Mg [[place]y 7.5/325Mg] 1 tab PO Q6HP PRN 04/15/17 [ History Confirmed 04/15/17 Last Taken 04/15/17 14:00 7.5/325 MG.] Naproxen Sodium 550 mg PO DAILYP PRN 04/15/17 [History Confirmed 04/15/17 Last Taken Unknown] OLANZapine [Zyprexa] 10 mg PO HS 04/15/17 [History Confirmed 04/15/17 Last Taken 04/14/17 21:00 10 MG.] Ondansetron [Zofran Odt] 4 mg PO Q6HP PRN 04/15/17 [History Confirmed 04/15/17 Last Taken Unknown] Psyllium Husk [Metamucil] 5.4 g PO DAILY 04/15/17 [History Confirmed 04/15/17 Last Taken 04/14/17 09:00 5.4 GM] Warfarin [Coumadin] 3 mg PO DAILY 04/15/17 [History Confirmed 04/15/17 Last Taken 04/14/17 09:00] lorazepam 0.5 mg tablet 0.5 mg PO TID #90 tab 04/16/17 [Rx Last Taken Unknown] Medical - DS: Hosp Hospital course: Mr. Roy is a 71 year old female who presented to the hospital after a critical result of low hb, patient has chr abdominal pain, but no other complaints, in the ER her Hb was 4.9, and her fob was reported as positive, no hao blood or billy was reported. Pt has dementia and is a poor historian, her is the primary history provider Anemia: Thought to be due to GI bleed, GI consulted, s/p EGD and colonoscopy which were negative, pt has elevated mcv on presentation, but normal b12 and folate. THe patient has low normal iron stores, and is started on iron therapy. She recieved 3 units of blood and her hb on discharge was 7.5, which has remained stable. Should her Hb drop again, and there is no obvious GI bleed, consideration to poor marrow function should be given. DVT/ Chr Anticoagulation: The patient was on coumadin with therapeutic INR, the patients was given Vit K which helped normalize the INR. After discussing with GI, it was noted that it would be appropriate to resume coumadin therapy. She will resume her home dose of coumadin, check INR on thursday. Abdominal pain: This seems to be a chr issue, CT abdomen and pelvis done, which was unchanged from her previous scan. No acute findings. leg pain: chr issue, on hydrocodone, will start on gabapentin 100mg TID to see if this helps. The rest of the patient conditions were stable, no changes in home meds except addition of gabapentin and ferrous sulphate. Plan of care was discussed with her who was agreeable to same. Discharge diagnosis: Acute Anemia. - Time Spent with Patient Total time spent providing and/or coordinating discharge services: Greater than 30 minutes Medical - DS: Exam - Constitutional Vitals: Vital Signs Temp Pulse Pulse Resp BP BP Pulse Ox 04/17/17 07:03 98.6 F 16 116/60 91 04/17/17 04:00 98.4 F 20 104/65 100 04/17/17 00:00 97.9 F 20 95/62 97 04/16/17 22:30 62 14 87/56 99 04/16/17 22:00 63 16 88/50 89 L 04/16/17 21:30 64 16 102/49 91 04/16/17 21:15 78 16 105/49 92 04/16/17 21:00 80 16 119/56 95 04/16/17 20:45 80 18 114/46 95 04/16/17 20:30 79 16 132/69 95 04/16/17 20:15 75 16 130/72 96 04/16/17 20:00 98.7 F 72 18 141/69 96 04/16/17 19:42 77 16 119/63 96 04/16/17 19:25 59 L 16 101/47 99 04/16/17 19:20 68 16 88/40 99 04/16/17 19:18 68 14 88/40 99 04/16/17 18:48 75 16 121/58 98 04/16/17 18:30 69 96 04/16/17 16:00 97.7 F 68 18 107/62 94 04/16/17 12:00 97.1 F 16 131/68 95 Intake and Output 04/16/17 04/17/17 04/17/17 21:59 05:59 13:59 Intake Total 300 / 300 100 / 100 740 / 740 Output Total 76 / 76 378 / 378 500 / 500 Balance 224 / 224 -278 / -278 240 / 240 Intake: IV 500 / 500 Sodium Chloride 0.9% 500 500 / 500 ml @ Wide Open IV BOLUS ONE Rx#:[id number] Oral 300 / 300 100 / 100 240 / 240 Output: Void Amount 75 / 75 125 / 125 # of times incontinent of 1 / 1 3 / 3 urine Urine/Stool Mix 200 / 200 500 / 500 Stool 50 / 50 Other: Meal snack Breakfast Percent of Meal Consumed 100% 100% Feeding Ability Assist with Tray Set Up # Voids 1 # Bowel Movements 1 # of times incontinent of 1 1 Bowels Weight 139 lb 14.4 oz Additional comments: Constitutional; Afebrile, cooperative, alert, not in distress. Eyes- No icterus, , No periorbital swelling Ears- Ext ear normal, hearing normal to conversation. Neck- Midline trachea, supple Respiratory system: Air Entry equal on both sides, No crackles or wheezing, no rhonchi. CVS- Rate rhythm regular, S1,S2 heard, no gallop, no rub. Abdomen- Soft nontender abdomen, no organomegaly, no tenderness, no guarding or rigidity. OBSTETRICS TECHNICIAN- AOOx1-2, moving all extremities, no gross focal deficit noted. Medical - DS: Data Labs on day of discharge: Labs from last 24 hours 04/17/17 04/17/17 04/17/17 04:04 04:04 04:04 WBC 4.6 RBC 2.35 L Hgb 7.5 L Hct 22.8 L MCV 96.9 MCH 32.0 MCHC 33.0 RDW 21.2 H Plt Count 268 MPV 7.2 L Gran % 71.0 Lymph % (Auto) 17.2 [place] % (Auto) 8.9 Eos % (Auto) 2.5 Baso % (Auto) 0.4 Gran # 3.3 Lymph # 0.8 L [place] # 0.4 Eos # 0.1 Baso # 0 PT 16.1 H INR 1.3 H Sodium 145 Potassium 3.9 Chloride 111 H Carbon Dioxide 23 Anion Gap 11.0 BUN 17 Creatinine 1.3 H GFR Calculation 42 Glucose 78 Uric Acid 7.6 Calcium 8.1 L Phosphorus 4.1 Magnesium 1.9 Iron 27 L TIBC 191 L Unsat Iron Binding 164 Transferrin % Sat 14 L Ferritin Pending Total Bilirubin 0.2 Direct Bilirubin < 0.2 GGT 8 AST 11 ALT 9 Alkaline Phosphatase 64 Lactate Dehydrogenase 147 Total Protein 5.0 L Albumin 2.8 L Globulin 2.2 Albumin/Globulin Ratio 1.3 Triglycerides 88 04/16/17 11:10 WBC RBC Hgb 7.5 L Hct 21.9 L MCV MCH MCHC RDW Plt Count MPV Gran % Lymph % (Auto) [place] % (Auto) Eos % (Auto) Baso % (Auto) Gran # Lymph # [place] # Eos # Baso # PT INR Sodium Potassium Chloride Carbon Dioxide Anion Gap BUN Creatinine GFR Calculation Glucose Uric Acid Calcium Phosphorus Magnesium Iron TIBC Unsat Iron Binding Transferrin % Sat Ferritin Total Bilirubin Direct Bilirubin GGT AST ALT Alkaline Phosphatase Lactate Dehydrogenase Total Protein Albumin Globulin Albumin/Globulin Ratio Triglycerides Preliminary micro results at discharge 04/15/17 23:43 Blood Culture - Preliminary Blood 04/15/17 20:45 Urine Culture - Preliminary Urine - Clean Void [facility] - DS: A/P - Patient/Caregiver Discharge Instructions Activity: as per physical therapy Diet: Cardiac Additional Instructions: Follow up with your pcp in 7-14 days Check INR on 04/20/2017, and send report to PCP. Follow up with Nephrology and oncology as previously scheduled. Go to the ER if any black stools, or gross blood in stool, blood in urine is noted. GO to ER if any other concerning symptom. Prescriptions: RX: Ferrous Gluconate [Fergon] 324 mg PO DAILY #60 tablet RX: Gabapentin [Neurontin] 100 mg PO Q8 #90 capsule RX: Hydrocodone/APAP 7.5/325Mg [Hardy 7.5/325Mg] 1 tab PO Q6HP PRN #40 PRN Reason: Pain RX: LORazepam [Ativan] 0.5 mg PO TID #30 tab Other Amb Orders: OT Discharge Order Location: Determined By Patient Physical Therapy at Discharge - General Location: Determined By Patient ST Discharge Order Location: Determined By Patient - Follow up Plan Follow up with: Miller Chu DO [Primary Care Provider] - Bettina Cobian MD [Physician] - Saul Corbett MD [Physician] - Disposition: Xfer SNF Prognosis: Fair Rehab Potential: Fair I certify that the patient requires SNF services: Yes Overall status at discharge: patient is progressing back to baseline Medical - DS: Qual - VTE Deep Vein Thrombosis/Pulmonary Embolism Present on Admission: No
[2017-04-17 12:13] LABS: Ferritin 153.9 ng/ml (30-400)
[2017-04-17] MEDS ORDERED: WARFARIN 3 MG TABLET PO SCH (14:00)
[2017-04-18] MEDS ORDERED: FERROUS GLUCONATE 324 MG TABLET PO SCH (09:00)
== END 2017-04-17 12:30 | DRG 812 ==
LOC: ED 12:12 → ICU 16:05
PROVIDERS: ADMIT Internal Medicine; ATTEND Internal Medicine

== ENCOUNTER 2020-01-31 06:54 | Inpatient (IN) ==
[2020-01-31] MEDS ORDERED: IPRATROPIUM/ALBUTEROL 3 ML AMPUL.NEB NEB ONE (07:22)
[2020-01-31] MEDS ORDERED: ACETAMINOPHEN 325 MG TABLET PO ONE ×2 (07:22→12:34)
[2020-01-31] MEDS ORDERED: 0.9 % SODIUM CHLORIDE 1,000 ML IV ONE (07:24)
--- NOTE | 2020-01-31 07:41 | Emergency Department Note ---
Fever HPI - General Chief Complaint: Fever Stated Complaint: fever, SOB, hypoxia. Time Seen by Provider: 01/31/20 07:36 Source: patient, EMS Mode of arrival: EMS Limitations: no limitations - History of Present Illness HPI Narrative: 74-year-old female comes in from [facility] for shortness of breath and hypoxia. She is got a fever up to 103. She does not normally wear oxygen but is requiring it now. Noted cough and congestion. - Related Data Home Medications Medication Instructions Recorded Confirmed Multivitamin [One Daily Essential] 1 tab PO DAILY 11/08/16 11/08/19 bisacodyl 10 mg rectal suppository 10 mg [place] DAILYP PRN 01/27/17 11/08/19 cyanocobalamin (vitamin B-12) 2,500 mcg SUBLINGUAL QDAY 01/27/17 11/08/19 2,500 mcg sublingual tablet magnesium citrate 15 ml PO BID PRN ml 01/27/17 11/08/19 magnesium hydroxide 400 mg/5 mL 30 ml PO HSP PRN ml 01/27/17 11/08/19 oral suspension Calcium Carbonate [Tums] 500 - 1,000 mg CHEWED DAILYP PRN 04/15/17 11/08/19 OLANZapine [Zyprexa] 10 mg PO HS 04/15/17 11/08/19 Ondansetron [Zofran Odt] 4 mg PO Q6HP PRN 04/15/17 11/08/19 acetaminophen 325 mg capsule 325 mg PO q8h PRN cap 05/29/17 11/08/19 citalopram 40 mg tablet 40 mg PO HS tab 05/29/17 11/08/19 ferrous gluconate 324 mg (36 mg 324 mg PO QDAY 05/29/17 11/08/19 iron) tablet nystatin 100,000 unit/gram topical 1 applic TOPICAL QDAY g 06/30/18 11/08/19 powder simethicone 80 mg chewable tablet 80 mg PO BID-QID PRN 10/20/18 11/08/19 pantoprazole 40 mg tablet,delayed 40 mg PO BID tab 01/18/19 11/08/19 release sennosides 8.6 mg tablet 17.2 mg PO QDAY tab 01/18/19 11/08/19 psyllium husk 3.4 gram/5.4 gram 3.4 g PO DAILY PRN g 11/08/19 11/08/19 oral powder warfarin 2 mg tablet 2.5 mg PO HS tab 11/08/19 11/08/19 Previous Rx's Medication Instructions Recorded polyethylene glycol 3350 17 gram 17 g PO BID PRN #7 each 10/31/16 oral powder packet memantine 14 mg capsule 14 mg PO QDAY #30 each 11/12/16 sprinkle,extended release 24hr Gabapentin [Neurontin] 100 mg PO Q8 #90 cap 04/17/17 LORazepam [Ativan] 0.5 mg PO TID #30 tab 04/17/17 cholecalciferol (vitamin D3) 50 2,000 unit PO QDAY #30 cap 01/18/19 mcg (2,000 unit) capsule hydrocodone 5 mg-acetaminophen 300 1 tab PO TID #90 tab 01/31/20 mg tablet Allergies Allergy/AdvReac Type Severity Reaction Status Date / Time No Known Drug Allergies Allergy Verified 11/08/19 12:53 Review of Systems All systems ED: reviewed and negative except as stated. Fever PMH - Past Medical History PMF Narrative: Family History (Last Reviewed 12/13/19 @ 19:21 by Miller Chu DO) Mother Malignant neoplasm of colon Malignant neoplasm of liver Father Malignant neoplasm of prostate Medical History (Last Reviewed 12/13/19 @ 19:20 by Miller Chu DO) Anxiety (Acute) Dysphagia (Acute) Fracture of fifth metacarpal bone of left hand (Acute) Sprain and strain of wrist (Acute) Gastroenteritis (Acute) Hematuria (Acute) Abscess of skin or subcutaneous tissue (Acute) E-coli UTI (Acute) Electrolyte and fluid disorders not elsewhere classified (Chronic) Vitamin D insufficiency (Chronic) Globus sensation (Chronic) CKD (chronic kidney disease), stage III (Chronic) Wound drainage (Chronic) Uterine mass (Chronic) Poor venous access (Chronic) Insomnia (Chronic) Generalized anxiety disorder (Chronic) Endocarditis (Chronic) Encounter for mammogram to establish baseline mammogram (Chronic) Dementia (Chronic) Anorexia symptom (Chronic) Erythema (Chronic) Abnormal mammogram (Chronic) Renal failure (Acute) Constipation (Acute) Dehydration (Acute) ARF (acute renal failure) (Acute) Abdominal pain (Acute) Dehydration (Acute) Metabolic acidosis (Chronic) Depression (Chronic) Asthma (Chronic) Anxiety (Chronic) Acid reflux (Chronic) 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 Conjunctive are clear on the right nonicteric. On the left, her eyelid is red and has some drainage associated with it. The c onjunctive itself looks okay. No icterus. No nasal discharge but some audible congestion noted. Wearing nasal cannula oxygen. Poor dentition. Oropharynx is pink with dry buccal mucosa. Neck is supple without lymphadenopathy or thyromegaly. Heart is regular rate and rhythm no murmur appreciated. Lungs are clear to auscultation bilaterally but she does have some wheezing and rales. Abdomen is soft nontender nondistended. No peritoneal signs or guarding. No pedal edema. Alert and able to answer questions appropriately Limitations: no limitations Course Vital Signs Respiratory Rate 24 H 01/31/20 07:04 Blood Pressure 146/84 01/31/20 07:04 Temperature 103.1 F H 01/31/20 07:37 Pulse Rate 105 H 01/31/20 08:31 Respiratory Rate 18 01/31/20 08:31 Blood Pressure 118/75 01/31/20 08:31 Pulse Oximetry (%) 93 01/31/20 08:31 Fever - Lab Data Lab results reviewed: Yes I reviewed the patient's lab results. Result diagrams: 01/31/20 07:15 01/31/20 07:15 Lab Results 01/31/20 01/31/20 01/31/20 Range/Units 07:15 07:15 07:15 WBC 9.4 (4.50-11.00) K/mcL RBC 3.67 (3.59-5.38) M/mcL Hgb 11.6 (11.2-15.7) g/dL Hct 35.9 (34.1-44.9) % MCV 97.8 (80.0-100.0) fL MCH 31.6 (26.0-34.0) pg MCHC 32.3 (31.0-36.0) g/dL RDW 14.2 (11.5-14.5) % Plt Count 207 (140-440) K/mcL MPV 9.7 (7.4-10.4) fL Gran % 87.7 H (38.0-78.0) % Lymph % (Auto) 5.8 L (15.5-49.0) % [place] % (Auto) 6.3 (1.0-12.0) % Eos % (Auto) 0.1 (0.0-7.0) % Baso % (Auto) 0.1 (0.0-2.0) % Gran # 8.28 H (1.80-8.00) K/mcL Lymph # (Auto) 0.55 L (1.50-4.80) K/mcL [place] # (Auto) 0.59 (0.10-0.90) K/mcL Eos # (Auto) 0.01 (0.00-0.70) K/mcL Baso # (Auto) 0.01 (0.00-0.30) K/mcL VBG Lactic Acid 1.0 (0.5-2.0) mmol/L Sodium 142 (133-145) mmol/L Potassium 3.4 (3.3-5.1) mmol/L Chloride 110 H (96-108) mmol/L Carbon Dioxide 16 L (22-30) mmol/L Anion Gap 16.0 (8-16) BUN 25 H (8-23) mg/dl Creatinine 1.6 H (0.6-1.1) mg/dl GFR Calculation 32 Glucose 124 H (70-105) mg/dL Calcium 8.9 (8.6-10.4) mg/dl Total Bilirubin 0.2 (0.0-1.0) mg/dL AST 29 (0-37) U/l ALT 18 (0-40) U/l Alkaline Phosphatase 86 (39-117) U/L Total Protein 7.9 (5.9-8.4) gm/dL Albumin 3.7 (3.2-5.2) gm/dL Globulin 4.2 H (2.2-3.7) gm/dL Albumin/Globulin Ratio 0.9 L (1.0-2.3) Influenza swab was negative - Radiology Data Radiology results reviewed: Yes I reviewed the patient's radiology results. Chest x-ray shows bilateral patchy infiltrate worse on the left lower. Radiology recommends consideration for aspiration pneumonia Disposition Pt seen by PHOTOCOPYING EQUIPMENT REPAIRER/PA only: No Clinical Impression: Pneumonia Qualifiers: Pneumonia type: due to unspecified organism Laterality: bilateral Lung location: lower lobe of lung Qualified Code(s): J18.9 - Pneumonia, unspecified organism Summary: Suspect pneumonia with fever. Chest x-ray was ordered. Flu swab is negative. Labs ordered. Start IV fluids and acetaminophen. DuoNeb Bilateral lower lobe pneumonia noted on x-ray. Worst on the left. Will order CT scan. Start antibiotics with vancomycin and Zosyn. Patient is noted to be a full code Discussed situation with Dr. Galicia at shift change. Care transferred to him for further care and evaluation Disposition: Still a Patient Condition: Serious Referrals: Miller Chu DO [Primary Care Provider] -
--- NOTE | 2020-01-31 07:56 | XRay Report ---
CLINICAL INFORMATION: cough, fever, hypoxia COMPARISON: 04/15/2017 FINDINGS: Moderate hiatal hernia has enlarged from prior study. The heart is moderately enlarged but stable. The remaining mediastinum and pulmonary vessels are normal. Moderate patchy infiltrates have developed in the left mid/lower lung and the right upper lung. No effusion IMPRESSION: Moderate patchy infiltrate left mid and lower lung and the right upper lung. Consider aspiration Moderate hiatal hernia increasing in size Interpreted and Authenticated by: Miller Jones 01/31/20
[2020-01-31] MEDS ORDERED: VANCOMYCIN 1,000 MG in 0.9 % SODIUM CHLORIDE 250 ML IV ONE (08:06)
[2020-01-31] MEDS ORDERED: PIPERACILLIN SODIUM/TAZOBACTAM 3.375 GM in DEXTROSE 5% IN WATER 50 ML IV ONE (08:06)
[2020-01-31 08:37] LABS: Basophils # (Auto) 0.01 K/mcL (0.00-0.30); Basophils % (Auto) 0.1 % (0.0-2.0); Eosinophils # (Auto) 0.01 K/mcL (0.00-0.70); Eosinophils % (Auto) 0.1 % (0.0-7.0); Granulocytes % (Auto) 87.7 % (38.0-78.0); Hematocrit 35.9 % (34.1-44.9); Hemoglobin 11.6 g/dL (11.2-15.7); Lymphocytes # (Auto) 0.55 K/mcL (1.50-4.80); Lymphocytes % (Auto) 5.8 % (15.5-49.0); Mean Cell Volume 97.8 fL (80.0-100.0); Mean Corpuscular HGB Conc 32.3 g/dL (31.0-36.0); Mean Platelet Volume 9.7 fL (7.4-10.4); Monocytes # (Auto) 0.59 K/mcL (0.10-0.90); Monocytes % (Auto) 6.3 % (1.0-12.0); Platelet Count 207 K/mcL (140-440); RBC 3.67 M/mcL (3.59-5.38); Red Cell Distribution Width 14.2 % (11.5-14.5); WBC 9.4 K/mcL (4.50-11.00)
[2020-01-31 08:53] LABS: ALT/SGPT 18 U/l (0-40); AST/SGOT 29 U/l (0-37); Albumin 3.7 gm/dL (3.2-5.2); Albumin/Globulin Ratio 0.9 (1.0-2.3); Alkaline Phosphatase 86 U/L (39-117); Bilirubin,Total 0.2 mg/dL (0.0-1.0); Blood Urea Nitrogen 25 mg/dl (8-23); Calcium 8.9 mg/dl (8.6-10.4); Carbon Dioxide 16 mmol/L (22-30); Globulin 4.2 gm/dL (2.2-3.7); Glomerular Filtration Rate 32; Glucose 124 mg/dL (70-105)
[2020-01-31 08:56] LABS: Chloride 110 mmol/L (96-108)
--- NOTE | 2020-01-31 10:49 | Cat Scan Report ---
CLINICAL INFORMATION: Pneumonia. Cough COMPARISON: None TECHNIQUE: 0.625 mm axial slices were obtained from the lung apices through the bases without intravenous contrast. 2.5 mm Sagittal, coronal and axial reformatted images were processed and reviewed at bone, lung and soft tissue windows. 7 mm axial MIP images were also reconstructed to optimize pulmonary nodule detection.The exam was performed using radiation dose optimization techniques including, but not limited to, automated exposure control, adjustment of the mA and/or kV according to patient size and use of iterative reconstruction technique. FINDINGS: Pulmonary parenchymal windows show moderate consolidated infiltrate in the lingula with patchy infiltrate in the posterior segment of the left upper lobe. There is also moderate consolidated airspace disease in the medial, posterior and lateral basilar segments of the left lower lobe. This is likely a combination of pneumonia and compressive atelectasis from an adjacent large hiatal hernia. In the right lung, there is only minimal atelectasis or scarring in the peripheral lower lobe. No evidence of right upper lobe infiltrate which was suspected on plain film. No effusions. Mediastinal windows show the heart is mildly enlarged with scattered calcific plaque in the coronary arteries.. Noncontrast thoracic aorta and pulmonary arteries are normal. There are no abnormally enlarged lymph nodes in the mediastinum, hilar or axillary region.. A 16 mm low-attenuation nodule, projecting from the posterior inferior right thyroid lobe, is likely a benign adenoma. The bone windows show no osseous abnormality. Images should superior abdomen show no abnormality in the visualized organs. There is moderate laxity in the superior anterior abdominal wall IMPRESSION: 1. Moderate consolidated infiltrate in the lingular region with patchy infiltrate posterior segment left upper lobe. Large region of consolidated left lower lobe airspace disease is likely compressive atelectasis related to a adjacent large hiatal hernia and pneumonia. No evidence of right lung infiltrate. Interpreted and Authenticated by: Miller Jones 01/31/20
--- NOTE | 2020-01-31 11:36 | Emergency Department Note ---
Fever HPI - General Chief Complaint: Fever Stated Complaint: fever, SOB, hypoxia. Time Seen by Provider: 01/31/20 07:36 Source: patient, EMS Mode of arrival: EMS Limitations: no limitations - History of Present Illness HPI Narrative: 84-year-old female presenting to the emergency department seen primarily by Dr. Dos Santos please see his documentation. Patient still present in the ED at time of shift change here for a primary complaint of fever feeling sick. Patient noted to be febrile with hypoxia as well as tachycardia. Patient was treated with Zos yn fluids and vancomycin here in the ED. - Related Data Home Medications Medication Instructions Recorded Confirmed Multivitamin [One Daily Essential] 1 tab PO DAILY 11/08/16 01/31/20 bisacodyl 10 mg rectal suppository 10 mg AR DAILYP PRN 01/27/17 01/31/20 cyanocobalamin (vitamin B-12) 2,500 mcg SUBLINGUAL QDAY 01/27/17 01/31/20 2,500 mcg sublingual tablet magnesium citrate 15 ml PO BID PRN ml 01/27/17 01/31/20 magnesium hydroxide 400 mg/5 mL 30 ml PO HSP PRN ml 01/27/17 01/31/20 oral suspension Calcium Carbonate [Tums] 500 - 1,000 mg CHEWED DAILYP PRN 04/15/17 01/31/20 OLANZapine [Zyprexa] 10 mg PO HS 04/15/17 01/31/20 Ondansetron [Zofran Odt] 4 mg PO Q6HP PRN 04/15/17 01/31/20 acetaminophen 325 mg capsule 325 mg PO q8h PRN cap 05/29/17 01/31/20 citalopram 40 mg tablet 40 mg PO HS tab 05/29/17 01/31/20 ferrous gluconate 324 mg (36 mg 324 mg PO QDAY 05/29/17 01/31/20 iron) tablet nystatin 100,000 unit/gram topical 1 applic TOPICAL QDAY g 06/30/18 01/31/20 powder simethicone 80 mg chewable tablet 80 mg PO BID-QID PRN 10/20/18 01/31/20 pantoprazole 40 mg tablet,delayed 40 mg PO BID tab 01/18/19 01/31/20 release sennosides 8.6 mg tablet 17.2 mg PO QDAY tab 01/18/19 01/31/20 psyllium husk 3.4 gram/5.4 gram 3.4 g PO DAILY PRN g 11/08/19 01/31/20 oral powder warfarin 2 mg tablet 2.5 mg PO HS tab 11/08/19 01/31/20 Atorvastatin [Lipitor] 10 mg PO HS 01/31/20 01/31/20 LORazepam [Ativan] 0.5 mg PO BID 01/31/20 01/31/20 Loratadine [Allerclear] 10 mg PO HS 01/31/20 01/31/20 Magnesium Oxide [Magnesium] 250 mg PO DAILY 01/31/20 01/31/20 Previous Rx's Medication Instructions Recorded polyethylene glycol 3350 17 gram 17 g PO BID PRN #7 each 10/31/16 oral powder packet memantine 14 mg capsule 14 mg PO QDAY #30 each 11/12/16 sprinkle,extended release 24hr Gabapentin [Neurontin] 100 mg PO Q8 #90 cap 04/17/17 cholecalciferol (vitamin D3) 50 2,000 unit PO QDAY #30 cap 01/18/19 mcg (2,000 unit) capsule hydrocodone 5 mg-acetaminophen 300 1 tab PO TID #90 tab 01/31/20 mg tablet Allergies Allergy/AdvReac Type Severity Reaction Status Date / Time No Known Drug Allergies Allergy Verified 11/08/19 12:53 Review of Systems All systems ED: reviewed and negative except as stated. Fever PMH - Past Medical History PMFSH Narrative: All Active Problems (Last Reviewed 12/13/19 @ 19:20 by Miller Chu DO) Anxiety (Acute) Dysphagia (Acute) Fracture of fifth metacarpal bone of left hand (Acute) Sprain and strain of wrist (Acute) Gastroenteritis (Acute) Hematuria (Acute) Abscess of skin or subcutaneous tissue (Acute) Anemia (Acute) GI bleed (Acute) Cellulitis (Acute) Pneumonia (Acute) Iron refractory iron deficiency anemia (Chronic) E-coli UTI (Acute) Electrolyte and fluid disorders not elsewhere classified (Chronic) Vitamin D insufficiency (Chronic) Auditory hallucination (Acute) Agitation (Chronic) Diarrhea (Acute) Hiatal hernia (Chronic) Presbyesophagus (Acute) Globus sensation (Chronic) Anemia (Chronic) CKD (chronic kidney disease), stage III (Chronic) Breast mass in female (Acute) Wound drainage (Chronic) Uterine mass (Chronic) Poor venous access (Chronic) Insomnia (Chronic) Generalized anxiety disorder (Chronic) Endocarditis (Chronic) Encounter for mammogram to establish baseline mammogram (Chronic) Dementia (Chronic) Anorexia symptom (Chronic) Erythema (Chronic) Abnormal mammogram (Chronic) Renal failure (Acute) Constipation (Acute) Dehydration (Acute) ARF (acute renal failure) (Acute) Abdominal pain (Acute) Dehydration (Acute) Metabolic acidosis (Chronic) Confusion (Acute) long-term (current) use of anticoagulants (Acute) Deep vein blood clot of left lower extremity (Acute) Depression (Chronic) Asthma (Chronic) Anxiety (Chronic) Acid reflux (Chronic) Medical history: Reports: arthritis, asthma, DVT, dementia, GERD, renal disease Psychiatric history: Reports: anxiety, depression Family history: Reports: non-contributory - Social History smoking status: Never smoker Alcohol use: Reports: None Physical Exam General: Alert, interactive, appropriate Head: Atraumatic, normocephalic Eyes: Extraocular movements intact Neck: Trachea midline, full range of motion Chest: Symmetrical chest wall rise, tachypnea Cardiovascular: Patient with excellent perfusion to the extremities Extremities: Full range of motion joints, warm well perfused Neuro: Alert, oriented x3, cranial nerves II through XII grossly intact, normal gait Psychiatric: Normal affect normal mood Limitations: no limitations Course Vital Signs Respiratory Rate 24 H 01/31/20 07:04 Blood Pressure 146/84 01/31/20 07:04 Temperature 100.5 F H 01/31/20 10:12 Pulse Rate 88 01/31/20 10:21 Respiratory Rate 23 H 01/31/20 10:21 Blood Pressure 107/60 01/31/20 10:21 Pulse Oximetry (%) 92 01/31/20 10:21 Fever - MDM Narrative Medical decision making narrative: Patient was awaiting CT scan results as well as final disposition noted to have significantly consolidative pneumonia. Vital signs improved during stay in the ED. Discussed the case with Dr. Mesa and consensus medical opinion is to admit the patient for ongoing care. - Lab Data Result diagrams: 01/31/20 07:15 01/31/20 07:15 Lab Results 01/31/20 01/31/20 01/31/20 Range/Units 07:15 07:15 07:15 WBC 9.4 (4.50-11.00) K/mcL RBC 3.67 (3.59-5.38) M/mcL Hgb 11.6 (11.2-15.7) g/dL Hct 35.9 (34.1-44.9) % MCV 97.8 (80.0-100.0) fL MCH 31.6 (26.0-34.0) pg MCHC 32.3 (31.0-36.0) g/dL RDW 14.2 (11.5-14.5) % Plt Count 207 (140-440) K/mcL MPV 9.7 (7.4-10.4) fL Gran % 87.7 H (38.0-78.0) % Lymph % (Auto) 5.8 L (15.5-49.0) % [place] % (Auto) 6.3 (1.0-12.0) % Eos % (Auto) 0.1 (0.0-7.0) % Baso % (Auto) 0.1 (0.0-2.0) % Gran # 8.28 H (1.80-8.00) K/mcL Lymph # (Auto) 0.55 L (1.50-4.80) K/mcL [place] # (Auto) 0.59 (0.10-0.90) K/mcL Eos # (Auto) 0.01 (0.00-0.70) K/mcL Baso # (Auto) 0.01 (0.00-0.30) K/mcL VBG Lactic Acid 1.0 (0.5-2.0) mmol/L Sodium 142 (133-145) mmol/L Potassium 3.4 (3.3-5.1) mmol/L Chloride 110 H (96-108) mmol/L Carbon Dioxide 16 L (22-30) mmol/L Anion Gap 16.0 (8-16) BUN 25 H (8-23) mg/dl Creatinine 1.6 H (0.6-1.1) mg/dl GFR Calculation 32 Glucose 124 H (70-105) mg/dL Calcium 8.9 (8.6-10.4) mg/dl Total Bilirubin 0.2 (0.0-1.0) mg/dL AST 29 (0-37) U/l ALT 18 (0-40) U/l Alkaline Phosphatase 86 (39-117) U/L Total Protein 7.9 (5.9-8.4) gm/dL Albumin 3.7 (3.2-5.2) gm/dL Globulin 4.2 H (2.2-3.7) gm/dL Albumin/Globulin Ratio 0.9 L (1.0-2.3) Procalcitonin (<0.10) ng/mL 01/31/20 Range/Units 07:15 WBC (4.50-11.00) K/mcL RBC (3.59-5.38) M/mcL Hgb (11.2-15.7) g/dL Hct (34.1-44.9) % MCV (80.0-100.0) fL MCH (26.0-34.0) pg MCHC (31.0-36.0) g/dL RDW (11.5-14.5) % Plt Count (140-440) K/mcL MPV (7.4-10.4) fL Gran % (38.0-78.0) % Lymph % (Auto) (15.5-49.0) % [place] % (Auto) (1.0-12.0) % Eos % (Auto) (0.0-7.0) % Baso % (Auto) (0.0-2.0) % Gran # (1.80-8.00) K/mcL Lymph # (Auto) (1.50-4.80) K/mcL [place] # (Auto) (0.10-0.90) K/mcL Eos # (Auto) (0.00-0.70) K/mcL Baso # (Auto) (0.00-0.30) K/mcL VBG Lactic Acid (0.5-2.0) mmol/L Sodium (133-145) mmol/L Potassium (3.3-5.1) mmol/L Chloride (96-108) mmol/L Carbon Dioxide (22-30) mmol/L Anion Gap (8-16) BUN (8-23) mg/dl Creatinine (0.6-1.1) mg/dl GFR Calculation Glucose (70-105) mg/dL Calcium (8.6-10.4) mg/dl Total Bilirubin (0.0-1.0) mg/dL AST (0-37) U/l ALT (0-40) U/l Alkaline Phosphatase (39-117) U/L Total Protein (5.9-8.4) gm/dL Albumin (3.2-5.2) gm/dL Globulin (2.2-3.7) gm/dL Albumin/Globulin Ratio (1.0-2.3) Procalcitonin 0.37 (<0.10) ng/mL Disposition Pt seen by BELL CAPTAIN/PA only: No Clinical Impression: Pneumonia Qualifiers: Pneumonia type: due to unspecified organism Laterality: bilateral Lung location: lower lobe of lung Qualified Code(s): J18.9 - Pneumonia, unspecified organism Disposition: Xfer As Inpt ([facility]) Condition: Serious Referrals: Miller Chu DO [Primary Care Provider] -
[2020-01-31] MEDS ORDERED: ONDANSETRON 4 MG/2 ML VIAL IV PRN ×2 (11:52→13:04)
[2020-01-31] MEDS ORDERED: ACETAMINOPHEN 325 MG TABLET PO PRN ×2 (11:52→13:04)
[2020-01-31] MEDS ORDERED: POLYETHYLENE GLYCOL 3350 17 GM PACKET PO PRN ×2 (12:00→13:04)
[2020-01-31] MEDS ORDERED: PIPERACILLIN SODIUM/TAZOBACTAM 3.375 GM in DEXTROSE 5% IN WATER 50 ML IV SCH (12:00)
[2020-01-31] MEDS ORDERED: SIMETHICONE 80 MG TAB.CHEW PO PRN ×2 (12:00→13:04)
[2020-01-31] MEDS ORDERED: 0.9 % SODIUM CHLORIDE 1,000 ML IV SCH ×2 (12:00→13:04)
[2020-01-31] MEDS ORDERED: VANCOMYCIN PER PHARMACY IV ONE (12:06)
[2020-01-31] MEDS ORDERED: PIPERACILLIN SODIUM/TAZOBACTAM 2.25 GM in DEXTROSE 5% IN WATER 50 ML IV SCH (12:15)
--- NOTE | 2020-01-31 12:39 | Internal Med History&Physical ---
Medical - H&P: [facility] Patient information: Note initiated : 01/31/20 at 12:10 pm Service Date, if different from initiated Date: [] Patient: Faiza Roy a 74 y/o F admitted on for fever, SOB, hypoxia.. Chief Complaint: [Shortness of breath 4 days] History of present illness: Ms. Roy is a 74 year old F with a past medical history of dysphasia, GI bleeding, and chronic kidney disease who was brought to the ER due to SOB for days. Pt is a poor historian and most information is obtained from her chart. Pt has been feeling sick over the past days. She also has been having sob associated with cough. She can not cough up sputum. In the ER, she was found to have episode of desaturation. She was febrile. CXR showed multi-lobe pneumonia. zosyn and vanc x 1 was given. Other than the symptoms mentioned above, she denied headache, dizziness, chest pain, n/v/d, abdominal pain, or dysuria. No recent travel or sick contact. Review of systems: ROS Constitutional: mild acute distress due to sob, no weight loss Eyes: no symptoms reported Nose, mouth and throat: no hemoptysis Neck: no symptoms reported Cardiovascular: no chest pain Respiratory: mild sob. Gastrointestinal: no abdominal pain, diarrhea, nausea, or vomiting Musculoskeletal: no arthralgias Endourology: no symptoms reported Neurological: no headache or dizziness Psychiatric: normal mood Medical - H&P: PMH Family history: reviewed and not pertinent (states that both parents were healthy.) Smoking status: Never smoker Drug use: none Alcohol use: none Medical - H&P: Meds Home Medications Medication Instructions Recorded Confirmed Type polyethylene glycol 3350 17 gram 17 g PO BID PRN #7 each 10/31/16 01/31/20 Rx oral powder packet Multivitamin [One Daily Essential] 1 tab PO DAILY 11/08/16 01/31/20 History memantine 14 mg capsule 14 mg PO QDAY #30 each 11/12/16 01/31/20 Rx sprinkle,extended release 24hr bisacodyl 10 mg rectal suppository 10 mg VT DAILYP PRN 01/27/17 01/31/20 History cyanocobalamin (vitamin B-12) 2,500 mcg SUBLINGUAL QDAY 01/27/17 01/31/20 History 2,500 mcg sublingual tablet magnesium citrate 15 ml PO BID PRN ml 01/27/17 01/31/20 History magnesium hydroxide 400 mg/5 mL 30 ml PO HSP PRN ml 01/27/17 01/31/20 History oral suspension Calcium Carbonate [Tums] 500 - 1,000 mg CHEWED DAILYP PRN 04/15/17 01/31/20 History OLANZapine [Zyprexa] 10 mg PO HS 04/15/17 01/31/20 History Ondansetron [Zofran Odt] 4 mg PO Q6HP PRN 04/15/17 01/31/20 History Gabapentin [Neurontin] 100 mg PO Q8 #90 cap 04/17/17 01/31/20 Rx acetaminophen 325 mg capsule 325 mg PO q8h PRN cap 05/29/17 01/31/20 History citalopram 40 mg tablet 40 mg PO HS tab 05/29/17 01/31/20 History ferrous gluconate 324 mg (36 mg 324 mg PO QDAY 05/29/17 01/31/20 History iron) tablet nystatin 100,000 unit/gram topical 1 applic TOPICAL QDAY g 06/30/18 01/31/20 History powder simethicone 80 mg chewable tablet 80 mg PO BID-QID PRN 10/20/18 01/31/20 History cholecalciferol (vitamin D3) 50 2,000 unit PO QDAY #30 cap 01/18/19 01/31/20 Rx mcg (2,000 unit) capsule pantoprazole 40 mg tablet,delayed 40 mg PO BID tab 01/18/19 01/31/20 History release sennosides 8.6 mg tablet 17.2 mg PO QDAY tab 01/18/19 01/31/20 History psyllium husk 3.4 gram/5.4 gram 3.4 g PO DAILY PRN g 11/08/19 01/31/20 History oral powder warfarin 2 mg tablet 2.5 mg PO HS tab 11/08/19 01/31/20 History Atorvastatin [Lipitor] 10 mg PO HS 01/31/20 01/31/20 History LORazepam [Ativan] 0.5 mg PO BID 01/31/20 01/31/20 History Loratadine [Allerclear] 10 mg PO HS 01/31/20 01/31/20 History Magnesium Oxide [Magnesium] 250 mg PO DAILY 01/31/20 01/31/20 History hydrocodone 5 mg-acetaminophen 300 1 tab PO TID #90 tab 01/31/20 01/31/20 Rx mg tablet Allergies Allergy/AdvReac Type Severity Reaction Status Date / Time No Known Drug Allergies Allergy Verified 11/08/19 12:53 Medical - H&P: Exam - Constitutional Vitals: Temp Pulse Resp BP Pulse Ox 100.5 F H 88 23 H 107/60 92 01/31/20 10:12 01/31/20 10:21 01/31/20 10:21 01/31/20 10:21 01/31/20 10:21 - Other Additional findings: General appearance: cooperative, no acute distress Head exam: atraumatic, normal inspection, normocephalic Eye exam: EOMI, PERRL Sclera: bilateral: normal inspection ENT exam: mucous membranes moist Neck exam: full ROM Neck exam: no tenderness Respiratory exam: silent lungs and mild crackles over RL field. Cardiovascular exam: normal rate and rhythm, +S1, +S2 GI/Abdominal exam: normal bowel sounds, soft, tenderness (very mild tenderness over epigastric area) Extremities exam: no joint swelling, or tenderness Neurological exam: alert, CN II-XII intact, reflexes normal Psychiatric exam: flat affect, normal mood Skin exam: intact Medical - H&P: Reslt - Labs CBC & Chem 7: 01/31/20 07:15 01/31/20 07:15 Labs: Short CBC 01/31/20 Range/Units 07:15 WBC 9.4 (4.50-11.00) K/mcL Hgb 11.6 (11.2-15.7) g/dL Hct 35.9 (34.1-44.9) % Plt Count 207 (140-440) K/mcL BMP 01/31/20 07:15 Sodium 142 Potassium 3.4 Chloride 110 H Carbon Dioxide 16 L BUN 25 H Creatinine 1.6 H Glucose 124 H Calcium 8.9 Liver Function 01/31/20 Range/Units 07:15 Total Bilirubin 0.2 (0.0-1.0) mg/dL AST 29 (0-37) U/l ALT 18 (0-40) U/l Alkaline Phosphatase 86 (39-117) U/L Albumin 3.7 (3.2-5.2) gm/dL Medical - H&P: A/P - Narrative A/P Narrative: Assessment; 1. Acute respiratory failure 2. Pneumonia, multi-lobes 3. Hx of dysphagia 4. Hx of GI bleeding 5. TONY on CKD stage 3, creatinine 1.1 on 05/10/2019. Baseline around 1.4. 6. Hx of DVT on warfarin Plan: 1. will be admitted to PCU as an inpatient because I feel she should stay in hospital more than 2 midnights 2. monitor car operator and pulse ox. oxgyen therapy. Keep SpO2 > 92% 3. CT chest showed Moderate consolidated infiltrate in the lingular region with patchy infiltrate posterior segment left upper lobe. Large region of consolidated left lower lobe airspace disease is likely compressive atelectasis related to a adjacent large hiatal hernia and pneumonia. No evidence of right lung infiltrate. MRSA screen Influenza screen Vanc, dosing by pharmacy. Continue hx of dysphagia, I will continue zosyn 4. ST swallow eval 5. Pantoprazole 40mg daily 6. Avoid nephrotoxic meds. Intake and output. repeat renal function in am 7. PT/INR ordered. continue warfarin, dosing by pharmacy 8. DVT prophylaxis: on warfarin 9. Code status: full
[2020-01-31] MEDS ORDERED: VANCOMYCIN PER PHARMACY IV SCH (13:04)
[2020-01-31 13:25] LABS: INR 2.5 (0.9-1.1); Prothrombin Time 27.9 sec (11.9-14.5)
--- NOTE | 2020-01-31 13:56 | Internal Med Progress Note ---
Medical - PN: Subj Patient information: Note initiated : 01/31/20 at 1:45 pm Service Date, if different from initiated Date: [] Patient: Faiza Roy a 74 y/o F admitted on 01/31/20 for fever, SOB, hypoxia.. Chief Complaint: [] Interval history: Ms. Roy is a 74 year old F with a past medical history of dysphasia, GI bleeding, and chronic kidney disease who was brought to the ER due to SOB for days. Pt is a poor historian and most information is obtained from her chart. Pt has been feeling sick over the past days. She also has been having sob associated with cough. She can not cough up sputum. In the ER, she was found to have episode of desaturation. She was febrile. CXR showed multi-lobe pneumonia. zosyn and vanc x 1 was given. Other than the symptoms mentioned above, she denied headache, dizziness, chest pain, n/v/d, abdominal pain, or dysuria. No recent travel or sick contact. 01/31 - Constitutional Vitals: Vital Signs Temp Pulse Resp BP Pulse Ox 100.1 F H 101 H 22 104/50 92 01/31/20 13:26 01/31/20 13:26 01/31/20 13:26 01/31/20 13:26 01/31/20 13:26 Period Temp Pulse Resp BP Sys/Benitez Pulse Ox Last 24 Hr 100.1 F-103.1 F 85-109 14-24 101-146/50-113 86-95 Intake and Output 01/30/20 01/31/20 01/31/20 21:59 05:59 13:59 Intake Total 1300 Balance 1300 Weight 75.75 kg Patient Weight 02/01/20 05:59 Weight 75.75 kg Intake & Output: Intake & Output 01/30/20 01/31/20 01/31/20 21:59 05:59 13:59 Intake Total 1300 Balance 1300 Weight 75.75 kg Intake: IV 1300 Sodium Chloride 0.9% 1,000 ml @ 1000 Wide Open IV BOLUS ONE Rx#: [id number] Zosyn 3.375 gm In Dextrose 5% 50 in Water 50 ml @ 100 mls/hr IV ONCE ONE Rx#:[id number] Vancomycin 1,000 mg In Sodium 250 Chloride 0.9% 250 ml @ 250 mls/ hr IV ONCE ONE Rx#:[id number] Exam: General: Alert, Awake, No acute Distress Eyes/N/T: EOMI, Head/Neck: neck supple, CV: RRR, No murmurs, Pulm: Abd: soft, nontender, +BS x4 Ext: no clubbing/cyanosis/edema Neuro: Alert, no focal deficits, moves all extremities, Skin: warm/dry Medical - PN: Obj Da - Labs CBC & Chem 7: 01/31/20 07:15 01/31/20 07:15 Labs: Abnormal Lab Results 01/31/20 01/31/20 01/31/20 07:15 07:15 07:15 Gran % 87.7 H Lymph % (Auto) 5.8 L Gran # 8.28 H Lymph # (Auto) 0.55 L PT 27.9 H INR 2.5 H Chloride 110 H Carbon Dioxide 16 L BUN 25 H Creatinine 1.6 H Glucose 124 H Globulin 4.2 H Albumin/Globulin Ratio 0.9 L Meds: Medications Acetaminophen (Tylenol) 650 mg PO Q6HP PRN; Protocol PRN Reason: Per Pain Protocol/Fever > 101 Hydrocodone Bitart/Acetaminophen (Forsan 5/325mg) 1 tab PO TID [facility] Atorvastatin Calcium (Lipitor) 10 mg PO HS [facility] Citalopram Hydrobromide (Celexa) 40 mg PO HS [facility] Docusate Sodium (Colace) 100 mg PO BID [facility] Ferrous Gluconate (Fergon) 324 mg PO QDAY [facility] Gabapentin (Neurontin) 100 mg PO Q8 [facility] Sodium Chloride (Sodium Chloride 0.9%) 1,000 mls @ 75 mls/hr IV .[id number] [facility] Piperacillin Sod/Tazobactam (Sod 2.25 gm/ Dextrose) 50 mls @ 100 mls/hr IV Q6H [facility]; Protocol Vancomycin HCl 1,500 mg/ (Sodium Chloride) 500 mls @ 333.3 mls/hr IV Q24H [facility] Iron Carb/Multivit/[place]/Folic Acid (Multivitamin W/Minerals) 1 tab PO DAILY [facility] Lorazepam (Ativan) 0.5 mg PO BID [facility] Olanzapine (Zyprexa) 10 mg PO HS [facility] Ondansetron HCl (Zofran) 4 mg IV Q4HP PRN; Protocol PRN Reason: Nausea And Vomiting Pantoprazole Sodium (Protonix) 40 mg PO QAMAC [facility] Cyanocobalamin (Vit (B-12) 2,500 Mcg) 1 dose SL QDAY [facility] Memantine Hcl [ (Namenda Xr] 14 Mg) 1 dose PO QDAY [facility] Polyethylene Glycol (Miralax) 17 gm PO BIDP PRN PRN Reason: constipation Simethicone (Mylicon) 80 mg PO QIDP PRN PRN Reason: Heartburn Sodium Chloride (Saline Flush) 10 ml IV Q8 [facility] Vancomycin HCl (Vancomycin Per Pharmacy) 1 order IV UD [facility]; Protocol Vitamin D (Vitamin D3) 2,000 unit PO QDAY [facility] Warfarin Sodium (Coumadin Per Pharmacy) 1 order PO DAILY@1400 [facility] Warfarin Sodium (Coumadin) 2.5 mg PO TODAY@1400 [facility] Stop: 01/31/20 15:00 Medical - PN: A/P - Time Spent With Patient Total time spent is greater than 50% in coordination of care (as documented) at patient's floor/unit and/or counseling patient: - Narrative A/P Narrative: A: * Acute hypoxic respiratory failure: 2/2 PNA * Pneumonia (Left lobes)/Human Metapneumovirus: - * Hx of dysphagia * Hx of GI bleeding * ?TONY on CKD stage 3: * Hx of DVT on warfarin *Depression/anxiety: *dementia: Plan: -oxgyen therapy wean as able -pulm toilet -MRSA screen, Influenza screen -Vanc/zosyn -Continue hx of dysphagia diet - ST swallow eval - Pantoprazole 40mg daily - Avoid nephrotoxic meds. Intake and output. repeat renal function in am -pt/ot -prophylaxis: on warfarin per pharm/home ppi Code status: full code
[2020-01-31] MEDS ORDERED: GABAPENTIN 100 MG CAPSULE PO SCH (14:00)
[2020-01-31] MEDS ORDERED: 0.9 % SODIUM CHLORIDE 10 ML SYRINGE IV SCH (14:00)
[2020-01-31] MEDS ORDERED: WARFARIN 2.5 MG TABLET PO SCH (14:00)
[2020-01-31] MEDS: 0.9 % SODIUM CHLORIDE 10 ML SYRINGE IV SCH ×2 (14:00→21:07)
[2020-01-31] MEDS ORDERED: [UNRECOGNIZED DRUG - OTHER] PO SCH (15:00)
[2020-01-31] MEDS ORDERED: HYDROCODONE PO SCH (15:00)
[2020-01-31] MEDS ORDERED: ACETAMINOPHEN PO SCH (15:00)
[2020-01-31] MEDS: HYDROcodone/APAP 5/325MG TABLET PO SCH ×2 (17:14→21:07)
[2020-01-31] MEDS: PIPERACILLIN SODIUM/TAZOBACTAM 2.25 GM in DEXTROSE 5% IN WATER 50 ML IV SCH ×2 (17:14→23:53)
[2020-01-31] MEDS: GABAPENTIN 100 MG CAPSULE PO SCH ×2 (17:14→21:07)
[2020-01-31] MEDS ORDERED: OLANZAPINE 10 MG PO SCH (21:00)
[2020-01-31] MEDS ORDERED: DOCUSATE SODIUM 100 MG CAPSULE PO SCH (21:00)
[2020-01-31] MEDS ORDERED: LORazepam 0.5 MG TABLET PO SCH (21:00)
[2020-01-31] MEDS ORDERED: WARFARIN 2 MG TABLET PO SCH ×2 (21:00)
[2020-01-31] MEDS ORDERED: ATORVASTATIN 20 MG TABLET PO SCH (21:00)
[2020-01-31] MEDS ORDERED: CITALOPRAM HYDROBROMIDE 40 MG PO SCH (21:00)
[2020-01-31] MEDS: LORazepam 0.5 MG TABLET PO SCH (21:07)
[2020-01-31] MEDS: OLANZapine 5 MG TABLET PO SCH (21:07)
[2020-01-31] MEDS: DOCUSATE SODIUM 100 MG CAPSULE PO SCH (21:07)
[2020-01-31] MEDS: ATORVASTATIN 20 MG TABLET PO SCH (21:07)
[2020-01-31] MEDS: CITALOPRAM 20 MG TABLET PO SCH (21:07)
[2020-02-01] MEDS: PIPERACILLIN SODIUM/TAZOBACTAM 2.25 GM in DEXTROSE 5% IN WATER 50 ML IV SCH ×3 (05:00→17:59)
[2020-02-01] MEDS: 0.9 % SODIUM CHLORIDE 10 ML SYRINGE IV SCH ×3 (05:00→20:35)
[2020-02-01] MEDS: GABAPENTIN 100 MG CAPSULE PO SCH ×3 (05:00→22:05)
--- NOTE | 2020-02-01 07:03 | Internal Med Progress Note ---
Medical - PN: Subj Patient information: Note initiated : 02/01/20 at 7:00 am Service Date, if different from initiated Date: [] Patient: Faiza Roy a 74 y/o F admitted on 01/31/20 for fever, SOB, hypoxia.. Chief Complaint: [] Interval history: Ms. Roy is a 74 year old F with a past medical history of dysphasia, GI bleeding, and chronic kidney disease who was brought to the ER due to SOB for days. Pt is a poor historian and most information is obtained from her chart. Pt has been feeling sick over the past days. She also has been having sob associated with cough. She can not cough up sputum. In the ER, she was found to have episode of desaturation. She was febrile. CXR showed multi-lobe pneumonia. zosyn and vanc x 1 was given. Other than the symptoms mentioned above, she denied headache, dizziness, chest pain, n/v/d, abdominal pain, or dysuria. No recent travel or sick contact. 01/31 Has a productive cough. Denies shortness of breath. On 3 L of nasal cannula this morning from 4 yesterday. Dysphasia diet, oral pharyngeal dysphasia per speech therapy evaluate. Review of Systems: denies headache/fever/chills/nausea/vomiting/chest or abdominal pain/diarrhea. Otherwise see above. - Constitutional Vitals: Vital Signs Temp Pulse Resp BP Pulse Ox 98.6 F 83 20 94/53 96 02/01/20 03:33 01/31/20 20:01 02/01/20 03:33 02/01/20 03:33 02/01/20 03:33 Period Temp Pulse Resp BP Sys/Benitez Pulse Ox Last 24 Hr 98.6 F-103.1 F 83-109 14-24 94-146/50-113 86-96 Intake and Output 01/31/20 02/01/20 02/01/20 21:59 05:59 13:59 Intake Total 410 200 Output Total 2 2 Balance 408 198 Weight 75.296 kg Intake & Output: Intake & Output 01/31/20 02/01/20 02/01/20 21:59 05:59 13:59 Intake Total 410 200 Output Total 2 2 Balance 408 198 Weight 75.296 kg Intake: IV 50 50 Zosyn 2.25 gm In Dextrose 5% in 50 50 Water 50 ml @ 100 mls/hr IV Q6H COUNT INCLUDES [facility] Rx#:[id number] Oral 360 150 Output: # of times incontinent of urine 2 2 Other: Meal Dinner Percent of Meal Consumed 100% Feeding Ability Assist with Tray Set Up # of times incontinent of 1 Bowels Exam: General: Alert, Awake, No acute Distress Eyes/N/T: EOMI, Head/Neck: neck supple, CV: RRR, No murmurs, Pulm: rhonchi/wheeze L>R Abd: soft, nontender, +BS x4 Ext: no clubbing/cyanosis/edema Neuro: Alert, no focal deficits, moves all extremities, Skin: warm/dry Medical - PN: Obj Da - Labs CBC & Chem 7: 02/01/20 05:10 02/01/20 05:10 Labs: Abnormal Lab Results 01/31/20 01/31/20 01/31/20 07:15 07:15 07:15 Gran % 87.7 H Lymph % (Auto) 5.8 L Gran # 8.28 H Lymph # (Auto) 0.55 L PT 27.9 H INR 2.5 H Chloride 110 H Carbon Dioxide 16 L BUN 25 H Creatinine 1.6 H Glucose 124 H Globulin 4.2 H Albumin/Globulin Ratio 0.9 L Meds: Medications Acetaminophen (Tylenol) 650 mg PO Q6HP PRN; Protocol PRN Reason: Per Pain Protocol/Fever > 101 Hydrocodone Bitart/Acetaminophen ([place] 5/325mg) 1 tab PO TID [facility] Last Admin: 01/31/20 21:07 Dose: 1 tab Documented by: Atorvastatin Calcium (Lipitor) 10 mg PO [facility] Last Admin: 01/31/20 21:07 Dose: 10 mg Documented by: Citalopram Hydrobromide (Celexa) 40 mg PO [facility] Last Admin: 01/31/20 21:07 Dose: 40 mg Documented by: Docusate Sodium (Colace) 100 mg PO BID [facility] Last Admin: 01/31/20 21:07 Dose: Not Given Documented by: Ferrous Gluconate (Fergon) 324 mg PO QDAY [facility] Gabapentin (Neurontin) 100 mg PO Q8 [facility] Last Admin: 02/01/20 05:00 Dose: 100 mg Documented by: Piperacillin Sod/Tazobactam (Sod 2.25 gm/ Dextrose) 50 mls @ 100 mls/hr IV Q6H [facility]; Protocol Last Admin: 02/01/20 05:00 Dose: 100 mls/hr Documented by: Vancomycin HCl 1,500 mg/ (Sodium Chloride) 500 mls @ 333.3 mls/hr IV Q24H COUNT [facility]CLUDES [facility] Iron Carb/Multivit/[place]/Folic Acid (Multivitamin W/Minerals) 1 tab PO DAILY [facility] Lorazepam (Ativan) 0.5 mg PO BID [facility] Last Admin: 01/31/20 21:07 Dose: 0.5 mg Documented by: Olanzapine (Zyprexa) 10 mg PO HS [facility] Last Admin: 01/31/20 21:07 Dose: 10 mg Documented by: Ondansetron HCl (Zofran) 4 mg IV Q4HP PRN; Protocol PRN Reason: Nausea And Vomiting Pantoprazole Sodium (Protonix) 40 mg PO QAMAC COUNT [facility]CLUD[facility] Cyanocobalamin (Vit (B-12) 2,500 Mcg) 1 dose SL QDAY COUNT [facility]CLUD[facility] Memantine Hcl [ (Namenda Xr] 14 Mg) 1 dose PO QDAY [facility] Polyethylene Glycol (Miralax) 17 gm PO BIDP PRN PRN Reason: constipation Simethicone (Mylicon) 80 mg PO QIDP PRN PRN Reason: Heartburn Sodium Chloride (Saline Flush) 10 ml IV Q8 [facility] Last Admin: 02/01/20 05:00 Dose: 10 ml Documented by: Vancomycin HCl (Vancomycin Per Pharmacy) 1 order IV UD [facility]; Protocol Vitamin D (Vitamin D3) 2,000 unit PO QDAY [facility] Warfarin Sodium (Coumadin Per Pharmacy) 1 order PO DAILY@1400 [facility] Last Admin: 01/31/20 17:10 Dose: Not Given Documented by: Medical - PN: A/P - Time Spent With Patient Total time spent is greater than 50% in coordination of care (as documented) at patient's floor/unit and/or counseling patient: - Narrative A/P Narrative: A: * Acute hypoxic respiratory failure: 2/2 PNA -4L O2 on admit * Pneumonia (Left lobes)/Human Metapneumovirus: -elevated PCT *Mild/Mod Oropharyngeal Dysphagia *h/o GI bleeding: *?TONY on CKD III: *h/o DVT: on warfarin *Depression/anxiety: *Dementia: Plan: -oxgyen therapy wean as able -pulm toilet -Vanc(likely d/c today)/zosyn - ST swallow eval, dysphagia diet -IVF's today - Avoid nephrotoxic meds. Intake and output. -pt/ot -prophylaxis: on warfarin per pharm/home ppi Code status: full code Medical - PN: Qual - VTE Deep Vein Thrombosis/Pulmonary Embolism Present on Admission: No
[2020-02-01] MEDS ORDERED: PANTOPRAZOLE 40 MG TABLET PO SCH (07:30)
[2020-02-01 07:34] LABS: proBNP 449.2 pg/ml (0-125)
[2020-02-01 07:51] LABS: Basophils # (Auto) 0.01 K/mcL (0.00-0.30); Basophils % (Auto) 0.1 % (0.0-2.0); Eosinophils # (Auto) 0 K/mcL (0.00-0.70); Eosinophils % (Auto) 0 % (0.0-7.0); Granulocytes % (Auto) 87.7 % (38.0-78.0); Hemoglobin 9.5 g/dL (11.2-15.7); Lymphocytes # (Auto) 1.48 K/mcL (1.50-4.80); Lymphocytes % (Auto) 9.4 % (15.5-49.0); Mean Corpuscular HGB Conc 31.7 g/dL (31.0-36.0); Mean Platelet Volume 10.1 fL (7.4-10.4); Monocytes # (Auto) 0.44 K/mcL (0.10-0.90); Monocytes % (Auto) 2.8 % (1.0-12.0); Platelet Count 168 K/mcL (140-440); RBC 3.03 M/mcL (3.59-5.38); Red Cell Distribution Width 14.5 % (11.5-14.5); WBC 15.8 K/mcL (4.50-11.00)
[2020-02-01 07:55] LABS: ALT/SGPT 15 U/l (0-40); AST/SGOT 25 U/l (0-37); Albumin 3.1 gm/dL (3.2-5.2); Albumin/Globulin Ratio 0.9 (1.0-2.3); Alkaline Phosphatase 66 U/L (39-117); Bilirubin,Direct < 0.2 mg/dL (0.0-0.3); Bilirubin,Total 0.4 mg/dL (0.0-1.0); Blood Urea Nitrogen 23 mg/dl (8-23); Calcium 8.1 mg/dl (8.6-10.4); Carbon Dioxide 17 mmol/L (22-30); Chloride 108 mmol/L (96-108); Globulin 3.4 gm/dL (2.2-3.7); Glomerular Filtration Rate 27; Glucose 87 mg/dL (70-105); Lactate Dehydrogenase 209 U/L (94-250); Phosphorous 3.3 mg/dL (2.7-4.5); Triglycerides 95 mg/dl (<150); Uric Acid 5.6 mg/dL (2.5-8.0)
[2020-02-01 08:02] LABS: INR 3.9 (0.9-1.1); Prothrombin Time 38.5 sec (11.9-14.5)
[2020-02-01] MEDS: MULTIVIT,THER IRON,CA,FA & MIN 1 TABLET PO SCH (08:43)
[2020-02-01] MEDS: CYANOCOBALAMIN 2500 MCG SL SCH (08:44)
[2020-02-01] MEDS: DOCUSATE SODIUM 100 MG CAPSULE PO SCH ×2 (08:44→20:35)
[2020-02-01] MEDS: LORazepam 0.5 MG TABLET PO SCH ×2 (08:44→20:32)
[2020-02-01] MEDS: Memantine Hcl [Namenda Xr] 14 MG PO SCH (08:44)
[2020-02-01] MEDS: HYDROcodone/APAP 5/325MG TABLET PO SCH ×3 (08:44→20:31)
[2020-02-01] MEDS: PANTOPRAZOLE 40 MG TABLET PO SCH (08:44)
[2020-02-01] MEDS: FERROUS GLUCONATE 324 MG TABLET PO SCH (08:44)
[2020-02-01] MEDS ORDERED: POTASSIUM CHLORIDE 20 MEQ TABLET PO ONE (08:59)
[2020-02-01] MEDS ORDERED: CHOLECALCIFEROL U PO SCH (09:00)
[2020-02-01] MEDS ORDERED: [UNRECOGNIZED DRUG - OTHER] PO SCH (09:00)
[2020-02-01] MEDS ORDERED: MEMANTINE HCL 14 MG PO SCH (09:00)
[2020-02-01] MEDS ORDERED: MULTIVITAMIN PO SCH (09:00)
[2020-02-01] MEDS ORDERED: FERROUS GLUCONATE 324 MG PO SCH (09:00)
[2020-02-01] MEDS ORDERED: CYANOCOBALAMIN 2500 MCG SUBLINGUAL SCH (09:00)
[2020-02-01] MEDS ORDERED: VANCOMYCIN 1,500 MG in 0.9 % SODIUM CHLORIDE 500 ML IV SCH (09:00)
[2020-02-01] MEDS ORDERED: 0.9 % SODIUM CHLORIDE 1,000 ML IV SCH (09:00)
[2020-02-01 09:36] LABS: Anisocytosis FEW (NONE SEEN); Band Neutrophils % 11 % (0-10); Lymphocytes % 6 % (15-49); Monocytes % (Manual) 2 % (1-12); Ovalocytes FEW (NONE SEEN); Platelet Estimate NORMAL (NORMAL); RBC Morphology ABNORM (NORMAL); Segmented Neutrophils % 81 % (38-78)
[2020-02-01] MEDS: VITAMIN D3 1,000 UNIT TABLET PO SCH (10:45)
[2020-02-01] MEDS ORDERED: LOPERAMIDE 2 MG CAPSULE PO PRN (16:18)
[2020-02-01] MEDS: ATORVASTATIN 20 MG TABLET PO SCH (20:32)
[2020-02-01] MEDS: CITALOPRAM 20 MG TABLET PO SCH (20:33)
[2020-02-01] MEDS: OLANZapine 5 MG TABLET PO SCH (20:33)
[2020-02-02] MEDS: PIPERACILLIN SODIUM/TAZOBACTAM 2.25 GM in DEXTROSE 5% IN WATER 50 ML IV SCH ×4 (00:08→17:39)
[2020-02-02] MEDS: GABAPENTIN 100 MG CAPSULE PO SCH ×3 (05:54→22:10)
[2020-02-02] MEDS: 0.9 % SODIUM CHLORIDE 10 ML SYRINGE IV SCH ×3 (06:03→20:55)
[2020-02-02 06:23] LABS: Hematocrit 28.6 % (34.1-44.9); Hemoglobin 8.8 g/dL (11.2-15.7); Mean Cell Volume 101.1 fL (80.0-100.0); Mean Corpuscular HGB Conc 30.8 g/dL (31.0-36.0); Mean Platelet Volume 10.3 fL (7.4-10.4); Platelet Count 166 K/mcL (140-440); RBC 2.83 M/mcL (3.59-5.38); Red Cell Distribution Width 14.9 % (11.5-14.5)
[2020-02-02] MEDS: PANTOPRAZOLE 40 MG TABLET PO SCH (06:40)
[2020-02-02 06:44] LABS: ALT/SGPT 13 U/l (0-40); AST/SGOT 20 U/l (0-37); Albumin 2.8 gm/dL (3.2-5.2); Albumin/Globulin Ratio 0.8 (1.0-2.3); Alkaline Phosphatase 68 U/L (39-117); Bilirubin,Direct < 0.2 mg/dL (0.0-0.3); Bilirubin,Total 0.2 mg/dL (0.0-1.0); Blood Urea Nitrogen 23 mg/dl (8-23); Calcium 7.9 mg/dl (8.6-10.4); Carbon Dioxide 17 mmol/L (22-30); Globulin 3.5 gm/dL (2.2-3.7); Glomerular Filtration Rate 27; Glucose 82 mg/dL (70-105); Lactate Dehydrogenase 202 U/L (94-250); Prothrombin Time 53.9 sec (11.9-14.5); Triglycerides 98 mg/dl (<150); Uric Acid 4.6 mg/dL (2.5-8.0)
[2020-02-02 06:56] LABS: Chloride 118 mmol/L (96-108); Phosphorous 2.6 mg/dL (2.7-4.5)
--- NOTE | 2020-02-02 07:20 | Internal Med Progress Note ---
Medical - PN: Subj Patient information: Note initiated : 02/02/20 at 7:13 am Service Date, if different from initiated Date: [] Patient: Faiza Roy a 74 y/o F admitted on 01/31/20 for fever, SOB, hypoxia.. Chief Complaint: [] Interval history: Ms. Roy is a 74 year old F with a past medical history of dysphasia, GI bleeding, and chronic kidney disease who was brought to the ER due to SOB for days. Pt is a poor historian and most information is obtained from her chart. Pt has been feeling sick over the past days. She also has been having sob associated with cough. She can not cough up sputum. In the ER, she was found to have episode of desaturation. She was febrile. CXR showed multi-lobe pneumonia. zosyn and vanc x 1 was given. Other than the symptoms mentioned above, she denied headache, dizziness, chest pain, n/v/d, abdominal pain, or dysuria. No recent travel or sick contact. 01/31 Has a productive cough. Denies shortness of breath. On 3 L of nasal cannula this morning from 4 yesterday. Dysphasia diet, oral pharyngeal dysphasia per speech therapy evaluate. 02/01 Patient has a productive cough but unable to expectorate completely. He is now on 1 L nasal cannula. No overnight events. C. difficile test for diarrhea that she had prior admission was negative. Positive human metapneumovirus yesterday noted. Afebrile last night. Review of Systems: denies headache/fever/chills/nausea/vomiting/chest or abdominal pain. Otherwise see above. - Constitutional Vitals: Vital Signs Temp Pulse Resp BP Pulse Ox 98.1 F 83 20 107/88 92 02/01/20 23:38 02/02/20 06:04 02/02/20 06:04 02/02/20 06:04 02/02/20 06:04 Period Temp Pulse Resp BP Sys/Benitez Pulse Ox Last 24 Hr 97.4 F-99.8 F 66-83 16-24 93-139/55-96 90-96 Intake and Output 02/01/20 02/02/20 02/02/20 21:59 05:59 13:59 Intake Total 460 1175 1050 Output Total 1 Balance 459 1175 1050 Weight 78.018 kg Intake & Output: Intake & Output 02/01/20 02/02/20 02/02/20 21:59 05:59 13:59 Intake Total 460 1175 1050 Output Total 1 Balance 459 1175 1050 Weight 78.018 kg Intake: IV 100 1050 1050 Sodium Chloride 0.9% 1,000 ml @ 1000 1000 75 mls/hr IV .[id number] [facility] Rx#: [id number] Zosyn 2.25 gm In Dextrose 5% in 100 50 50 Water 50 ml @ 100 mls/hr IV Q6H [facility] Rx#:[id number] Oral 360 125 Output: # of times incontinent of urine 1 Other: Meal Dinner Percent of Meal Consumed 75% Stool Size Small Stool Color Green Stool Consistency Liquid # of times incontinent of 1 Bowels Exam: General: Alert, Awake, No acute Distress Eyes/N/T: EOMI, Head/Neck: neck supple, CV: RRR, No murmurs, Pulm: rhonchi/wheeze L>R Abd: soft, nontender, +BS x4 Ext: no clubbing/cyanosis, mild b/l LE edema Neuro: Alert, no focal deficits, moves all extremities, Skin: warm/dry Medical - PN: Obj Da - Labs CBC & Chem 7: 02/02/20 05:20 02/02/20 05:20 Labs: Abnormal Lab Results 02/02/20 02/02/20 02/02/20 05:20 05:20 05:20 WBC 18.0 H RBC 2.83 L Hgb 8.8 L Hct 28.6 L MCV 101.1 H MCHC 30.8 L RDW 14.9 H Gran % Lymph % (Auto) Gran # Lymph # (Auto) Seg Neutrophils % Band Neutrophils % Lymphocytes % RBC Morphology Anisocytosis Ovalocytes PT 53.9 H INR 6.0 H* Potassium Chloride 118 H Carbon Dioxide 17 L BUN Creatinine 1.8 H Glucose Calcium 7.9 L Phosphorus 2.6 L NT-Pro-B Natriuret Pep Albumin 2.8 L Globulin Albumin/Globulin Ratio 0.8 L 02/01/20 02/01/20 02/01/20 05:11 05:10 05:10 WBC RBC Hgb Hct MCV MCHC RDW Gran % Lymph % (Auto) Gran # Lymph # (Auto) Seg Neutrophils % 81 H Band Neutrophils % 11 H Lymphocytes % 6 L RBC Morphology Abnorm A Anisocytosis Few A Ovalocytes Few A PT 38.5 H INR 3.9 H Potassium 3.0 L Chloride Carbon Dioxide 17 L BUN Creatinine 1.8 H Glucose Calcium 8.1 L Phosphorus NT-Pro-B Natriuret Pep 449.2 H Albumin 3.1 L Globulin Albumin/Globulin Ratio 0.9 L 02/01/20 01/31/20 01/31/20 05:10 07:15 07:15 WBC 15.8 H RBC 3.03 L Hgb 9.5 L Hct 30.0 L MCV MCHC RDW Gran % 87.7 H Lymph % (Auto) 9.4 L Gran # 13.84 H Lymph # (Auto) 1.48 L Seg Neutrophils % Band Neutrophils % Lymphocytes % RBC Morphology Anisocytosis Ovalocytes PT 27.9 H INR 2.5 H Potassium Chloride 110 H Carbon Dioxide 16 L BUN 25 H Creatinine 1.6 H Glucose 124 H Calcium Phosphorus NT-Pro-B Natriuret Pep Albumin Globulin 4.2 H Albumin/Globulin Ratio 0.9 L 01/31/20 07:15 WBC RBC Hgb Hct MCV MCHC RDW Gran % 87.7 H Lymph % (Auto) 5.8 L Gran # 8.28 H Lymph # (Auto) 0.55 L Seg Neutrophils % Band Neutrophils % Lymphocytes % RBC Morphology Anisocytosis Ovalocytes PT INR Potassium Chloride Carbon Dioxide BUN Creatinine Glucose Calcium Phosphorus NT-Pro-B Natriuret Pep Albumin Globulin Albumin/Globulin Ratio Meds: Medications Acetaminophen (Tylenol) 650 mg PO Q6HP PRN; Protocol PRN Reason: Per Pain Protocol/Fever > 101 Hydrocodone Bitart/Acetaminophen ([place] 5/325mg) 1 tab PO TID [facility] Last Admin: 02/01/20 20:31 Dose: 1 tab Documented by: Atorvastatin Calcium (Lipitor) 10 mg PO [facility] Last Admin: 02/01/20 20:32 Dose: 10 mg Documented by: Citalopram Hydrobromide (Celexa) 40 mg PO [facility] Last Admin: 02/01/20 20:33 Dose: 40 mg Documented by: Docusate Sodium (Colace) 100 mg PO BID [facility] Last Admin: 02/01/20 20:35 Dose: Not Given Documented by: Ferrous Gluconate (Fergon) 324 mg PO QDAY [facility] Last Admin: 02/01/20 08:44 Dose: 324 mg Documented by: Gabapentin (Neurontin) 100 mg PO Q8 [facility] Last Admin: 02/02/20 05:54 Dose: 100 mg Documented by: Piperacillin Sod/Tazobactam (Sod 2.25 gm/ Dextrose) 50 mls @ 100 mls/hr IV Q6H [facility]; Protocol Last Infusion: 02/02/20 06:48 Dose: Infused Documented by: Vancomycin HCl 1,500 mg/ (Sodium Chloride) 500 mls @ 333.3 mls/hr IV Q24H [facility] Last Infusion: 02/01/20 13:45 Dose: Infused Documented by: Iron Carb/Multivit/[place]/Folic Acid (Multivitamin W/Minerals) 1 tab PO DAILY [facility] Last Admin: 02/01/20 08:43 Dose: 1 tab Documented by: Loperamide HCl (Imodium) 2 mg PO PRN PRN PRN Reason: Diarrhea Last Admin: 02/02/20 05:54 Dose: 2 mg Documented by: Lorazepam (Ativan) 0.5 mg PO BID [facility] Last Admin: 02/01/20 20:32 Dose: 0.5 mg Documented by: Olanzapine (Zyprexa) 10 mg PO HS [facility] Last Admin: 02/01/20 20:33 Dose: 10 mg Documented by: Ondansetron HCl (Zofran) 4 mg IV Q4HP PRN; Protocol PRN Reason: Nausea And Vomiting Pantoprazole Sodium (Protonix) 40 mg PO QAMAC [facility] Last Admin: 02/02/20 06:40 Dose: 40 mg Documented by: Cyanocobalamin (Vit (B-12) 2,500 Mcg) 1 dose SL QDAY [facility] Last Admin: 02/01/20 08:44 Dose: Not Given Documented by: Memantine Hcl [ (Namenda Xr] 14 Mg) 1 dose PO QDAY [facility] Last Admin: 02/01/20 08:44 Dose: Not Given Documented by: Polyethylene Glycol (Miralax) 17 gm PO BIDP PRN PRN Reason: constipation Simethicone (Mylicon) 80 mg PO QIDP PRN PRN Reason: Heartburn Sodium Chloride (Saline Flush) 10 ml IV Q8 [facility] Last Admin: 02/02/20 06:03 Dose: 10 ml Documented by: Vancomycin HCl (Vancomycin Per Pharmacy) 1 order IV UD [facility]; Protocol Vitamin D (Vitamin D3) 2,000 unit PO QDAY [facility] Last Admin: 02/01/20 10:45 Dose: 2,000 unit Documented by: Warfarin Sodium (Coumadin Per Pharmacy) 1 order PO DAILY@1400 [facility] Last Admin: 02/01/20 14:20 Dose: Not Given Documented by: Medical - PN: A/P - Time Spent With Patient Total time spent is greater than 50% in coordination of care (as documented) at patient's floor/unit and/or counseling patient: - Narrative A/P Narrative: A: * Acute hypoxic respiratory failure: 2/ PNA -4L O2 on admit, now on 1L NC * Pneumonia (Left lobes)/(+)Human Metapneumovirus: -elevated PCT now improving, leukocytosis/bandemia yesterday, *Sepsis: afebrile last night *Mild/Mod Oropharyngeal Dysphagia *h/o GI bleeding: *?TONY on CKD III: prerenal *h/o DVT: on warfarin, INR increased * *Depression/anxiety: *Dementia: *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 Intake and output. -pt/ot -prophylaxis: on warfarin per pharm/home ppi Code status: full code Medical - PN: Qual - VTE Deep Vein Thrombosis/Pulmonary Embolism Present on Admission: No
[2020-02-02] MEDS ORDERED: 0.9 % SODIUM CHLORIDE 1,000 ML IV SCH ×2 (07:30→15:53)
[2020-02-02 07:31] LABS: Anisocytosis FEW (NONE SEEN); Band Neutrophils % 7 % (0-10); Lymphocytes % 5 % (15-49); Monocytes % (Manual) 1 % (1-12); Ovalocytes 1+ (NONE SEEN); Platelet Estimate NORMAL (NORMAL); RBC Morphology ABNORMAL (NORMAL); Segmented Neutrophils % 87 % (38-78)
[2020-02-02] MEDS: VITAMIN D3 1,000 UNIT TABLET PO SCH (09:30)
[2020-02-02] MEDS: HYDROcodone/APAP 5/325MG TABLET PO SCH ×3 (09:30→20:53)
[2020-02-02] MEDS: FERROUS GLUCONATE 324 MG TABLET PO SCH (09:30)
[2020-02-02] MEDS: LORazepam 0.5 MG TABLET PO SCH ×2 (09:30→20:53)
[2020-02-02] MEDS: DOCUSATE SODIUM 100 MG CAPSULE PO SCH ×2 (09:31→20:54)
[2020-02-02] MEDS: MULTIVIT,THER IRON,CA,FA & MIN 1 TABLET PO SCH (09:31)
[2020-02-02] MEDS: CYANOCOBALAMIN 2500 MCG SL SCH (10:01)
[2020-02-02] MEDS: Memantine Hcl [Namenda Xr] 14 MG PO SCH (10:01)
[2020-02-02] MEDS ORDERED: SIMETHICONE 80 MG TAB.CHEW PO PRN (15:53)
[2020-02-02] MEDS ORDERED: LOPERAMIDE 2 MG CAPSULE PO PRN (15:53)
[2020-02-02] MEDS ORDERED: ACETAMINOPHEN 325 MG TABLET PO PRN (15:53)
[2020-02-02] MEDS ORDERED: POLYETHYLENE GLYCOL 3350 17 GM PACKET PO PRN (15:53)
[2020-02-02] MEDS ORDERED: ONDANSETRON 4 MG/2 ML VIAL IV PRN (15:53)
[2020-02-02] MEDS: OLANZapine 5 MG TABLET PO SCH (20:52)
[2020-02-02] MEDS: ATORVASTATIN 20 MG TABLET PO SCH (20:53)
[2020-02-02] MEDS: CITALOPRAM 20 MG TABLET PO SCH (20:53)
[2020-02-03] MEDS: PIPERACILLIN SODIUM/TAZOBACTAM 2.25 GM in DEXTROSE 5% IN WATER 50 ML IV SCH ×4 (00:35→18:11)
[2020-02-03] MEDS: 0.9 % SODIUM CHLORIDE 10 ML SYRINGE IV SCH (05:46)
[2020-02-03] MEDS: GABAPENTIN 100 MG CAPSULE PO SCH ×3 (05:52→22:17)
[2020-02-03 06:25] LABS: Hematocrit 27.8 % (34.1-44.9); Hemoglobin 8.6 g/dL (11.2-15.7); Mean Cell Volume 101.8 fL (80.0-100.0); Mean Corpuscular HGB Conc 30.9 g/dL (31.0-36.0); Mean Platelet Volume 10.1 fL (7.4-10.4); Platelet Count 181 K/mcL (140-440); RBC 2.73 M/mcL (3.59-5.38); Red Cell Distribution Width 14.8 % (11.5-14.5); WBC 10.1 K/mcL (4.50-11.00)
[2020-02-03 06:36] LABS: INR 5.5 (0.9-1.1); Prothrombin Time 50.8 sec (11.9-14.5)
[2020-02-03 06:48] LABS: Band Neutrophils % 4 % (0-10); Eosinophils % (Manual) 3 % (0-7); Lymphocytes % 13 % (15-49); Platelet Estimate NORMAL (NORMAL); RBC Morphology NORMAL (NORMAL); Segmented Neutrophils % 80 % (38-78)
[2020-02-03 06:49] LABS: ALT/SGPT 12 U/l (0-40); AST/SGOT 16 U/l (0-37); Albumin 2.7 gm/dL (3.2-5.2); Albumin/Globulin Ratio 0.8 (1.0-2.3); Alkaline Phosphatase 63 U/L (39-117); Bilirubin,Direct < 0.2 mg/dL (0.0-0.3); Bilirubin,Total 0.2 mg/dL (0.0-1.0); Blood Urea Nitrogen 16 mg/dl (8-23); Carbon Dioxide 17 mmol/L (22-30); Globulin 3.4 gm/dL (2.2-3.7); Glomerular Filtration Rate 34; Glucose 78 mg/dL (70-105); Lactate Dehydrogenase 189 U/L (94-250); Phosphorous 2.6 mg/dL (2.7-4.5); Triglycerides 97 mg/dl (<150); Uric Acid 4.6 mg/dL (2.5-8.0)
[2020-02-03 06:51] LABS: Chloride 115 mmol/L (96-108)
[2020-02-03] MEDS: DOCUSATE SODIUM 100 MG CAPSULE PO SCH ×2 (07:17→22:17)
--- NOTE | 2020-02-03 07:28 | Internal Med Progress Note ---
Medical - PN: Subj Patient information: Note initiated : 02/03/20 at 7:25 am Service Date, if different from initiated Date: [] Patient: Faiza Roy a 74 y/o F admitted on 01/31/20 for fever, SOB, hypoxia.. Chief Complaint: [] Interval history: Ms. Roy is a 74 year old F with a past medical history of dysphasia, GI bleeding, and chronic kidney disease who was brought to the ER due to SOB for days. Pt is a poor historian and most information is obtained from her chart. Pt has been feeling sick over the past days. She also has been having sob associated with cough. She can not cough up sputum. In the ER, she was found to have episode of desaturation. She was febrile. CXR showed multi-lobe pneumonia. zosyn and vanc x 1 was given. Other than the symptoms mentioned above, she denied headache, dizziness, chest pain, n/v/d, abdominal pain, or dysuria. No recent travel or sick contact. 01/31 Has a productive cough. Denies shortness of breath. On 3 L of nasal cannula this morning from 4 yesterday. Dysphasia diet, oral pharyngeal dysphasia per speech therapy evaluate. 02/01 Patient has a productive cough but unable to expectorate completely. He is now on 1 L nasal cannula. No overnight events. C. difficile test for diarrhea that she had prior admission was negative. Positive human metapneumovirus yesterday noted. Afebrile last night. 02/02 has cough, denies dyspnea. on 0.5L o2 with sats mid 90's. No overnight events or new complaints. Review of Systems: denies headache/fever/chills/nausea/vomiting/chest or abdominal pain. Otherwise see above. - Constitutional Vitals: Vital Signs Temp Pulse Resp BP Pulse Ox 96.8 F L 58 L 16 125/64 95 02/03/20 07:13 02/03/20 07:13 02/03/20 07:13 02/03/20 07:13 02/03/20 07:13 Period Temp Pulse Resp BP Sys/Benitez Pulse Ox Last 24 Hr 96.8 F-98.4 F 54-64 16-28 88-125/53-70 91-97 Intake and Output 02/02/20 02/03/20 02/03/20 21:59 05:59 13:59 Intake Total 290 1230 50 Output Total 1 1 Balance 289 1229 50 Weight 77.111 kg Intake & Output: Intake & Output 02/02/20 02/03/20 02/03/20 21:59 05:59 13:59 Intake Total 290 1230 50 Output Total 1 1 Balance 289 1229 50 Weight 77.111 kg Intake: IV 50 1050 50 Sodium Chloride 0.9% 1,000 ml @ 1000 75 mls/hr IV .[id number] [facility] Rx#: [id number] Zosyn 2.25 gm In Dextrose 5% in 50 50 50 Water 50 ml @ 100 mls/hr IV Q6H [facility] Rx#:[id number] Oral 240 180 Output: # of times incontinent of urine 1 1 Other: Meal Dinner Percent of Meal Consumed 100% Feeding Ability Assist with Tray Set Up Stool Size Small Stool Color Green Stool Consistency Liquid # Bowel Movements 1 # of times incontinent of 1 Bowels Exam: General: Alert, Awake, No acute Distress Eyes/N/T: EOMI, Head/Neck: neck supple, CV: RRR, No murmurs, Pulm: minimal rhonchi much improved, no wheezing Abd: soft, nontender, +BS x4 Ext: no clubbing/cyanosis, mild b/l LE edema Neuro: Alert, no focal deficits, moves all extremities, Skin: warm/dry Medical - PN: Obj Da - Labs CBC & Chem 7: 02/03/20 05:13 02/03/20 05:13 Labs: Abnormal Lab Results 02/03/20 02/03/20 02/03/20 05:13 05:13 05:13 WBC RBC 2.73 L Hgb 8.6 L Hct 27.8 L MCV 101.8 H MCHC 30.9 L RDW 14.8 H Gran % Lymph % (Auto) Gran # Lymph # (Auto) Seg Neutrophils % 80 H Band Neutrophils % Lymphocytes % 13 L RBC Morphology Anisocytosis Ovalocytes PT 50.8 H INR 5.5 H Potassium Chloride 115 H Carbon Dioxide 17 L BUN Creatinine 1.5 H Glucose Calcium 8.0 L Phosphorus 2.6 L NT-Pro-B Natriuret Pep Albumin 2.7 L Globulin Albumin/Globulin Ratio 0.8 L 02/02/20 02/02/20 02/02/20 05:20 05:20 05:20 WBC 18.0 H RBC 2.83 L Hgb 8.8 L Hct 28.6 L MCV 101.1 H MCHC 30.8 L RDW 14.9 H Gran % Lymph % (Auto) Gran # Lymph # (Auto) Seg Neutrophils % 87 H Band Neutrophils % Lymphocytes % 5 L RBC Morphology Anisocytosis Few A Ovalocytes 1+ A PT 53.9 H INR 6.0 H* Potassium Chloride 118 H Carbon Dioxide 17 L BUN Creatinine 1.8 H Glucose Calcium 7.9 L Phosphorus 2.6 L NT-Pro-B Natriuret Pep Albumin 2.8 L Globulin Albumin/Globulin Ratio 0.8 L 02/01/20 02/01/20 02/01/20 05:11 05:10 05:10 WBC RBC Hgb Hct MCV MCHC RDW Gran % Lymph % (Auto) Gran # Lymph # (Auto) Seg Neutrophils % 81 H Band Neutrophils % 11 H Lymphocytes % 6 L RBC Morphology Abnorm A Anisocytosis Few A Ovalocytes Few A PT 38.5 H INR 3.9 H Potassium 3.0 L Chloride Carbon Dioxide 17 L BUN Creatinine 1.8 H Glucose Calcium 8.1 L Phosphorus NT-Pro-B Natriuret Pep 449.2 H Albumin 3.1 L Globulin Albumin/Globulin Ratio 0.9 L 02/01/20 01/31/20 01/31/20 05:10 07:15 07:15 WBC 15.8 H RBC 3.03 L Hgb 9.5 L Hct 30.0 L MCV MCHC RDW Gran % 87.7 H Lymph % (Auto) 9.4 L Gran # 13.84 H Lymph # (Auto) 1.48 L Seg Neutrophils % Band Neutrophils % Lymphocytes % RBC Morphology Anisocytosis Ovalocytes PT 27.9 H INR 2.5 H Potassium Chloride 110 H Carbon Dioxide 16 L BUN 25 H Creatinine 1.6 H Glucose 124 H Calcium Phosphorus NT-Pro-B Natriuret Pep Albumin Globulin 4.2 H Albumin/Globulin Ratio 0.9 L 01/31/20 07:15 WBC RBC Hgb Hct MCV MCHC RDW Gran % 87.7 H Lymph % (Auto) 5.8 L Gran # 8.28 H Lymph # (Auto) 0.55 L Seg Neutrophils % Band Neutrophils % Lymphocytes % RBC Morphology Anisocytosis Ovalocytes PT INR Potassium Chloride Carbon Dioxide BUN Creatinine Glucose Calcium Phosphorus NT-Pro-B Natriuret Pep Albumin Globulin Albumin/Globulin Ratio Meds: Medications Acetaminophen (Tylenol) 650 mg PO Q6HP PRN; Protocol PRN Reason: Per Pain Protocol/Fever > 101 Hydrocodone Bitart/Acetaminophen ([place] 5/325mg) 1 tab PO TID [facility] Last Admin: 02/02/20 20:53 Dose: 1 tab Documented by: Atorvastatin Calcium (Lipitor) 10 mg PO [facility] Last Admin: 02/02/20 20:53 Dose: 10 mg Documented by: Citalopram Hydrobromide (Celexa) 40 mg PO HS [facility] Last Admin: 02/02/20 20:53 Dose: 40 mg Documented by: Docusate Sodium (Colace) 100 mg PO BID [facility] Last Admin: 02/03/20 07:17 Dose: Not Given Documented by: Ferrous Gluconate (Fergon) 324 mg PO QDAY [facility] Gabapentin (Neurontin) 100 mg PO Q8 [facility] Last Admin: 02/03/20 05:52 Dose: 100 mg Documented by: Piperacillin Sod/Tazobactam (Sod 2.25 gm/ Dextrose) 50 mls @ 100 mls/hr IV Q6H [facility]; Protocol Last Infusion: 02/03/20 06:49 Dose: Infused Documented by: Iron Carb/Multivit/[place]/Folic Acid (Multivitamin W/Minerals) 1 tab PO DAILY [facility] Loperamide HCl (Imodium) 2 mg PO PRN PRN PRN Reason: Diarrhea Lorazepam (Ativan) 0.5 mg PO BID [facility] Last Admin: 02/02/20 20:53 Dose: 0.5 mg Documented by: Olanzapine (Zyprexa) 10 mg PO [facility] Last Admin: 02/02/20 20:52 Dose: 10 mg Documented by: Ondansetron HCl (Zofran) 4 mg IV Q4HP PRN; Protocol PRN Reason: Nausea And Vomiting Pantoprazole Sodium (Protonix) 40 mg PO QAMAC [facility] Cyanocobalamin (Vit (B-12) 2,500 Mcg) 1 dose SL QDAY [facility] Memantine Hcl [ (Namenda Xr] 14 Mg) 1 dose PO QDAY [facility] Polyethylene Glycol (Miralax) 17 gm PO BIDP PRN PRN Reason: constipation Simethicone (Mylicon) 80 mg PO QIDP PRN PRN Reason: Heartburn Sodium Chloride (Saline Flush) 10 ml IV Q8 [facility] Last Admin: 02/03/20 05:46 Dose: 10 ml Documented by: Vitamin D (Vitamin D3) 2,000 unit PO QDAY [facility] Warfarin Sodium (Coumadin Per Pharmacy) 1 order PO DAILY@1400 [facility] Medical - PN: A/P - Time Spent With Patient Total time spent is greater than 50% in coordination of care (as documented) at patient's floor/unit and/or counseling patient: - Narrative A/P Narrative: A: * Acute hypoxic respiratory failure: 2/ PNA -4L O2 on admit, now on 0.5L NC * Pneumonia (Left lobes)/(+)Human Metapneumovirus: -elevated PCT now improving, leukocytosis/bandemia resolved, *Sepsis: now afebrile *Mild/Mod Oropharyngeal Dysphagia *h/o GI bleeding: *?TONY on CKD III: prerenal *h/o DVT: on warfarin, INR increased * *Depression/anxiety: *Dementia: *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 Intake and output. -pt/ot -prophylaxis: on warfarin per pharm/home ppi Code status: full code Medical - PN: Qual - VTE Deep Vein Thrombosis/Pulmonary Embolism Present on Admission: No
[2020-02-03] MEDS: PANTOPRAZOLE 40 MG TABLET PO SCH (07:34)
[2020-02-03] MEDS ORDERED: IPRATROPIUM/ALBUTEROL 3 ML AMPUL.NEB NEB PRN (08:30)
[2020-02-03] MEDS: MULTIVIT,THER IRON,CA,FA & MIN 1 TABLET PO SCH (08:44)
[2020-02-03] MEDS: FERROUS GLUCONATE 324 MG TABLET PO SCH (08:44)
[2020-02-03] MEDS: VITAMIN D3 1,000 UNIT TABLET PO SCH (08:45)
[2020-02-03] MEDS: HYDROcodone/APAP 5/325MG TABLET PO SCH ×3 (08:45→22:16)
[2020-02-03] MEDS: LORazepam 0.5 MG TABLET PO SCH ×2 (08:45→22:17)
[2020-02-03] MEDS ORDERED: guaiFENesin 600 MG TAB.SR.12H PO ONE (08:52)
--- NOTE | 2020-02-03 08:59 | Discharge Summary ---
Medical - DS: Prov Patient information: Note initiated : 02/03/20 at 8:55 am Service Date, if different from initiated Date: [] Patient: Faiza Roy 74 y/o F admitted on 01/31/20 for fever, SOB, hypoxia.. Chief Complaint: [] Date of admission: 01/31/20 13:03 Discharge date: 02/04/20 Primary care physician: Miller Chu Consults: 01/31/20 11:31 Consult to Physician [CONS] Stat Comment: Consulting Provider: Jessica Mesa Reason For Exam: Physician to Consult Medical - DS: Meds - Discharge Medications Prescriptions: Amoxicillin/Potassium Clav [Augmentin] 500 mg PO BID #4 tab Prescription Printed Lactobacillus [Culturelle] 1 cap PO BID #40 cap Prescription Printed Active and Home Medications: Home Medications polyethylene glycol 3350 17 gram oral powder packet 17 g PO BID PRN #7 each 10/31/16 [Rx Confirmed 01/31/20 Last Taken 12/05/18 17:00] Multivitamin [One Daily Essential] 1 tab PO DAILY 11/08/16 [History Confirmed 01/31/20 Last Taken 12/05/18 17:00] memantine 14 mg capsule sprinkle,extended release 24hr 14 mg PO QDAY #30 each 11/12/16 [Rx Confirmed 01/31/20 Last Taken 12/05/18 17:00] bisacodyl 10 mg rectal suppository 10 mg FL DAILYP PRN 01/27/17 [History Confirmed 01/31/20 Last Taken Unknown] cyanocobalamin (vitamin B-12) 2,500 mcg sublingual tablet 2,500 mcg SUBLINGUAL QDAY 01/27/17 [History Confirmed 01/31/20 Last Taken 12/05/18 17:00] magnesium citrate 15 ml PO BID PRN ml 01/27/17 [History Confirmed 01/31/20 Last Taken 12/05/18 17:00] magnesium hydroxide 400 mg/5 mL oral suspension 30 ml PO HSP PRN ml 01/27/17 [History Confirmed 01/31/20 Last Taken 12/05/18 17:00] Calcium Carbonate [Tums] 500 - 1,000 mg CHEWED DAILYP PRN 04/15/17 [History Confirmed 01/31/20 Last Taken 12/05/18 17:00] OLANZapine [Zyprexa] 10 mg PO HS 05/24/17 [History Confirmed 01/31/20 Last Taken 04/14/17 21:00 10 MG.] Ondansetron [Zofran Odt] 4 mg PO Q6HP PRN 04/15/17 [History Confirmed 01/31/20 Last Taken Unknown] Gabapentin [Neurontin] 100 mg PO Q8 #90 cap 04/17/17 [Rx Confirmed 01/31/20 Last Taken 12/05/18 17:00] acetaminophen 325 mg capsule 325 mg PO q8h PRN cap 05/29/17 [History Confirmed 01/31/20 Last Taken 11/23/18] citalopram 40 mg tablet 40 mg PO HS tab 05/29/17 [History Confirmed 01/31/20 Last Taken 12/05/18 17:00] ferrous gluconate 324 mg (36 mg iron) tablet 324 mg PO QDAY 05/29/17 [History Confirmed 01/31/20 Last Taken 12/05/18 17:00] nystatin 100,000 unit/gram topical powder 1 applic TOPICAL QDAY g 06/30/18 [History Confirmed 01/31/20 Last Taken Unknown] simethicone 80 mg chewable tablet 80 mg PO BID-QID PRN 10/20/18 [History Confirmed 01/31/20 Last Taken 12/05/18 17:00] cholecalciferol (vitamin D3) 50 mcg (2,000 unit) capsule 2,000 unit PO QDAY #30 cap 01/18/19 [Rx Confirmed 01/31/20 Last Taken Unknown] pantoprazole 40 mg tablet,delayed release 40 mg PO BID tab 01/18/19 [History Confirmed 01/31/20 Last Taken Unknown] sennosides 8.6 mg tablet 17.2 mg PO QDAY tab 01/18/19 [History Confirmed 01/31/20 Last Taken Unknown] psyllium husk 3.4 gram/5.4 gram oral powder 3.4 g PO DAILY PRN g 11/08/19 [History Confirmed 01/31/20 Last Taken Unknown] warfarin 2 mg tablet 2.5 mg PO HS tab 11/08/19 [History Confirmed 01/31/20 Last Taken Unknown] Atorvastatin [Lipitor] 10 mg PO HS 01/31/20 [History Confirmed 01/31/20 Last Taken Unknown] LORazepam [Ativan] 0.5 mg PO BID 01/31/20 [History Confirmed 01/31/20 Last Taken Unknown] Loratadine [Allerclear] 10 mg PO HS 01/31/20 [History Confirmed 01/31/20 Last Taken Unknown] Magnesium Oxide [Magnesium] 250 mg PO DAILY 01/31/20 [History Confirmed 01/31/20 Last Taken Unknown] hydrocodone 5 mg-acetaminophen 300 mg tablet 1 tab PO TID #90 tab 01/31/20 [Rx Confirmed 01/31/20 Last Taken Unknown] Hold warfarin until follow up INR, dosing per Pharamcy/PCP. INR check in two days Medical - DS: Hosp Hospital Course: Ms. Roy is a 74 year old F with a past medical history of dysphasia, GI bleeding, and chronic kidney disease who was brought to the ER due to SOB for days. Pt is a poor historian and most information is obtained from her chart. Pt has been feeling sick over the past days. She also has been having sob associated with cough. She can not cough up sputum. In the ER, she was found to have episode of desaturation. She was febrile. CXR showed multi-lobe pneumonia. zosyn and vanc x 1 was given. Other than the symptoms mentioned above, she denied headache, dizziness, chest pain, n/v/d, abdominal pain, or dysuria. No recent travel or sick contact. 01/31 Has a productive cough. Denies shortness of breath. On 3 L of nasal cannula this morning from 4 yesterday. Dysphasia diet, oral pharyngeal dysphasia per speech therapy evaluate. 02/01 Patient has a productive cough but unable to expectorate completely. He is now on 1 L nasal cannula. No overnight events. C. difficile test for diarrhea that she had prior admission was negative. Positive human metapneumovirus yesterday noted. Afebrile last night. 02/02 has cough, denies dyspnea. on 0.5L o2 with sats mid 90's. No overnight events or new complaints. 02/03 Doing well. No overnight events. Patient on room air. Stable for discharge. Hold warfarin until repeat INR checked in 2 days and then restart/adjust dose per PCP/pharmacy. 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 Discharge diagnosis: Pneumonia sepsis acute hypoxic respiratory failure oropharyngeal dysphagia Secondary discharge diagnosis: Chronic kidney disease history of DVT depression anxiety dementia diarrhea - Time Spent with Patient Total time spent providing and/or coordinating discharge services: Greater than 30 minutes Medical - DS: Exam - Constitutional Vitals: Vital Signs Temp Pulse Pulse Resp BP BP BP 02/03/20 08:00 68 22 02/03/20 07:13 96.8 F L 58 L 16 125/64 02/03/20 04:12 54 L 16 100/60 02/03/20 00:53 97.9 F 64 20 88/53 02/02/20 21:07 02/02/20 19:41 97.9 F 64 20 112/65 02/02/20 15:47 97.2 F 58 L 20 107/61 02/02/20 14:00 02/02/20 11:40 98.4 F 20 118/67 Pulse Ox 02/03/20 08:00 93 02/03/20 07:13 95 02/03/20 04:12 97 02/03/20 00:53 91 02/02/20 21:07 94 02/02/20 19:41 91 02/02/20 15:47 92 02/02/20 14:00 94 02/02/20 11:40 95 Intake and Output 02/02/20 02/03/20 02/03/20 21:59 05:59 13:59 Intake Total 290 1230 50 Output Total 1 1 Balance 289 1229 50 Intake: IV 50 1050 50 Sodium Chloride 0.9% 1,000 ml @ 1000 75 mls/hr IV .[id number] [facility] Rx#: [id number] Zosyn 2.25 gm In Dextrose 5% in 50 50 50 Water 50 ml @ 100 mls/hr IV Q6H [facility] Rx#:[id number] Oral 240 180 Output: # of times incontinent of urine 1 1 Other: Meal Dinner Percent of Meal Consumed 100% Feeding Ability Assist with Tray Set Up Stool Size Small Stool Color Green Stool Consistency Liquid # Bowel Movements 1 # of times incontinent of 1 Bowels Weight 77.111 kg Medical - DS: Data Labs on day of discharge: Labs from last 24 hours 02/03/20 02/03/20 02/03/20 05:13 05:13 05:13 WBC 10.1 RBC 2.73 L Hgb 8.6 L Hct 27.8 L MCV 101.8 H MCH 31.5 MCHC 30.9 L RDW 14.8 H Plt Count 181 MPV 10.1 Total Counted 100 Seg Neutrophils % 80 H Band Neutrophils % 4 Lymphocytes % 13 L Eosinophils % (Manual) 3 Platelet Estimate Normal RBC Morphology Normal PT 50.8 H INR 5.5 H Sodium 143 Potassium 3.8 Chloride 115 H Carbon Dioxide 17 L Anion Gap 11.0 BUN 16 Creatinine 1.5 H GFR Calculation 34 Glucose 78 Uric Acid 4.6 Calcium 8.0 L Phosphorus 2.6 L Magnesium 1.7 Total Bilirubin 0.2 Direct Bilirubin < 0.2 GGT 18 AST 16 ALT 12 Alkaline Phosphatase 63 Lactate Dehydrogenase 189 Total Protein 6.1 Albumin 2.7 L Globulin 3.4 Albumin/Globulin Ratio 0.8 L Triglycerides 97 Vancomycin Trough 02/02/20 08:08 WBC RBC Hgb Hct MCV MCH MCHC RDW Plt Count MPV Total Counted Seg Neutrophils % Band Neutrophils % Lymphocytes % Eosinophils % (Manual) Platelet Estimate RBC Morphology PT INR Sodium Potassium Chloride Carbon Dioxide Anion Gap BUN Creatinine GFR Calculation Glucose Uric Acid Calcium Phosphorus Magnesium Total Bilirubin Direct Bilirubin GGT AST ALT Alkaline Phosphatase Lactate Dehydrogenase Total Protein Albumin Globulin Albumin/Globulin Ratio Triglycerides Vancomycin Trough 15.1 Preliminary micro results at discharge 01/31/20 07:28 Blood Culture - Preliminary Blood 01/31/20 08:02 Blood Culture - Preliminary Blood Medical - DS: A/P - Patient/Caregiver Discharge Instructions Activity: as per physical therapy Diet: Dysphagia Level 5 Minced & Moist Foods Prescriptions: Amoxicillin/Potassium Clav [Augmentin] 500 mg PO BID #4 tab Prescription Printed Lactobacillus [Culturelle] 1 cap PO BID #40 cap Prescription Printed Other Amb Orders: Prothrombin Time INR Time Frame: 2 Days, Location: None Selected - Follow up Plan Follow up with: Miller Chu DO [Primary Care Provider] - Disposition: Xfer SNF Prognosis: Undetermined Rehab Potential: Fair I certify that the patient requires SNF services: Yes Overall status at discharge: patient is progressing back to baseline Medical - DS: Qual - VTE Deep Vein Thrombosis/Pulmonary Embolism Present on Admission: No
[2020-02-03] MEDS: CYANOCOBALAMIN 2500 MCG SL SCH (10:05)
[2020-02-03] MEDS: Memantine Hcl [Namenda Xr] 14 MG PO SCH (10:05)
[2020-02-03] MEDS: LACTOBACILLUS 1 CAPSULE PO SCH ×2 (10:17→22:17)
[2020-02-03] MEDS: OLANZapine 5 MG TABLET PO SCH (22:16)
[2020-02-03] MEDS: CITALOPRAM 20 MG TABLET PO SCH (22:17)
[2020-02-03] MEDS: ATORVASTATIN 20 MG TABLET PO SCH (22:17)
[2020-02-04] MEDS: PIPERACILLIN SODIUM/TAZOBACTAM 2.25 GM in DEXTROSE 5% IN WATER 50 ML IV SCH ×2 (00:28→06:02)
[2020-02-04 06:43] LABS: INR 4.9 (0.9-1.1); Prothrombin Time 46.2 sec (11.9-14.5)
[2020-02-04] MEDS: PANTOPRAZOLE 40 MG TABLET PO SCH (07:50)
[2020-02-04] MEDS: GABAPENTIN 100 MG CAPSULE PO SCH (07:50)
[2020-02-04] MEDS: MULTIVIT,THER IRON,CA,FA & MIN 1 TABLET PO SCH (09:04)
[2020-02-04] MEDS: LACTOBACILLUS 1 CAPSULE PO SCH (09:04)
[2020-02-04] MEDS: FERROUS GLUCONATE 324 MG TABLET PO SCH (09:04)
[2020-02-04] MEDS: VITAMIN D3 1,000 UNIT TABLET PO SCH (09:04)
[2020-02-04] MEDS: LORazepam 0.5 MG TABLET PO SCH (09:04)
[2020-02-04] MEDS: Memantine Hcl [Namenda Xr] 14 MG PO SCH (09:05)
[2020-02-04] MEDS: HYDROcodone/APAP 5/325MG TABLET PO SCH (09:06)
[2020-02-04] MEDS: CYANOCOBALAMIN 2500 MCG SL SCH (09:06)
[2020-02-04] MEDS: DOCUSATE SODIUM 100 MG CAPSULE PO SCH (09:06)
== END 2020-02-04 09:00 | DRG 871 ==
LOC: ED 06:54 → ICU 13:03
PROVIDERS: ADMIT Internal Medicine; ATTEND Internal Medicine